=== PATIENT | female | born 1945 | race Caucasian/White ===

== ENCOUNTER 2019-05-05 12:02 | Outpatient (CLI) | payer MEDICARE, SELFPAY ==
--- NOTE | ~2019-05-05 | MMUS_ITS ---
EXAMINATION: MM diagnostic anisha RT w candy, US breast RT limited HISTORY: Six-month follow-up for probably benign right breast mass. TECHNIQUE: Craniocaudal, mediolateral, and mediolateral oblique 3-D tomosynthesis images of the right breast were performed and synthetic 2-D images were generated. CAD analysis was submitted and interp reted. High resolution limited right breast ultrasound was performed. COMPARISON: 10/14/2018, 10/03/2018, 09/14/2018, 07/06/2017, 06/17/2016 BREAST PARENCHYMAL COMPOSITION: There are scattered areas of fibroglandular density. FINDINGS: MAMMOGRAPHIC FINDINGS: There is a 5 mm round, circumscribed, equal density mass in the middle third of the outer breast at t he 9:00 location 6 cm from the nipple. Scattered benign-appearing calcifications are present. No susp icious architectural distortion is identified. ULTRASOUND: There is a 5 mm cyst at the 9:00 location 4 cm from the nipple corresponding to the mammographic find ing in question. At the 3:00 location, there is a tiny shadowing calcification which corresponds to t he area previously imaged for which follow-up is recommended. IMPRESSION: 1. No mammographic or sonographic evidence of malignancy. 2. Recommend routine screening mammography. BI-RADS Category 2: Benign finding(s). Reviewed, dictated and finalized at location A. R ENERGY SYSTEMS ENGINEER IMPRESSION: 1. No mammographic or sonographic evidence of malignancy. 2. Recommend routine screening mammography. BI-RADS Category 2: Benign finding(s).
== END 2019-05-05 12:03 | disposition home or self-care (01) ==
LOC: ANHIMG 12:06
PROVIDERS: PCP Family Medicine; Visit Provider Physician Assistant Medical
DX: R92.8 Other abnormal and inconclusive findings on diagnostic imaging of breast (principal)
CPT/HCPCS: 76642; 77061; 77065; G0279

== ENCOUNTER 2019-05-29 14:07 | Outpatient (CLI) | payer MEDICARE, SELFPAY ==
--- NOTE | ~2019-05-29 | XR_ITS ---
XR chest 2V DATE: 05/29/2019 14:26 INDICATION: Cough, shortness of breath TECHNIQUE: PA and lateral views COMPARISON: 06/24/2017 two-view chest FINDINGS: There is some chronic scarring in the left mid-upper lung. The lungs are mildly hyperinflat ed. No pulmonary infiltrate or consolidation, pleural effusion or pulmonary vascular congestion or pn eumothorax is detected. Borderline heart size. There is thoracic aortic and abdominal aortic calcification. Diffuse osteopenia. Probable callus formation associated with old fracture of the anterior left fourt h rib. IMPRESSION: Chronic left upper lobe scarring No active disease or significant change since 06/24/2017 Reviewed, dictated and finalized at location A.
== END 2019-05-29 14:08 | disposition home or self-care (01) ==
LOC: ANHIMG 14:15
PROVIDERS: PCP Family Medicine; Visit Provider Nurse Practitioner Family
DX: R05 Cough (principal); R06.02 Shortness of breath; R91.8 Other nonspecific abnormal finding of lung field
CPT/HCPCS: 71046

== ENCOUNTER 2019-08-24 10:21 | Outpatient (CLI) | payer MEDICARE, SELFPAY ==
[2019-08-24 10:38] LABS: Hematocrit 40.2 % (37.0-47.0); Hemoglobin 13.2 g/dL (12.0-15.0); Mean Corpuscular HGB Conc 32.8 g/dl (32-36); Mean Corpuscular Hemoglobin 29.9 pg (26-34); Mean Corpuscular Volume 91.2 fl (80-100); Mean Platelet Volume 12.2 fl (7.4-10.4); Platelet Count Result 254 k/mm3 (150-375); Red Blood Count 4.41 M/mm3 (4.2-5.4); Red Cell Distribution Width 13.6 % (11.5-14.5); White Blood Count 8.2 K/mm3 (4.5-10.0)
[2019-08-24 10:52] LABS: Alanine Aminotransferase 21 U/L (4-35); Albumin Level 4.4 g/dL (3.5-5.1); Alkaline Phosphatase 73 U/L (38-126); Aspartate Amino Transferase 32 U/L (14-36); Bilirubin,Total 0.4 mg/dL (0.2-1.3); Blood Urea Nitrogen 10 mg/dL (7-17); Calcium 9.4 mg/dL (8.4-10.2); Carbon Dioxide 34 mmol/L (22-30); Chloride 97 mmol/L (98-107); Cholesterol 155 mg/dL (0-200); Estimated Glomerular Filt Rate > 60; Glucose 93 mg/dL (65-105); HDL Direct 66 mg/dL; Potassium 3.8 mmol/L (3.4-5.0); Sodium 134 mmol/L (137-145); Triglycerides 72 mg/dL (<150)
[2019-08-24 11:03] LABS: LDL Cholesterol Direct 64 mg/dL
[2019-08-24 11:24] LABS: Free T4 Free Thyroxine 1.46 ng/mL (0.78-2.19)
== END 2019-08-24 10:22 | disposition home or self-care (01) ==
LOC: ANHLAB 10:25
PROVIDERS: PCP Family Medicine; Visit Provider Physician Assistant Medical
DX: E03.9 Hypothyroidism, unspecified (principal); I10 Essential (primary) hypertension; E78.5 Hyperlipidemia, unspecified
CPT/HCPCS: 36415; 80053; 80061; 84439; 84443; 85027

== ENCOUNTER 2019-09-19 11:55 | Outpatient (CLI) | payer MEDICARE, SELFPAY ==
[2019-09-19 12:28] LABS: Blood Urea Nitrogen 14 mg/dL (7-17); Calcium 9.6 mg/dL (8.4-10.2); Carbon Dioxide 33 mmol/L (22-30); Chloride 96 mmol/L (98-107); Estimated Glomerular Filt Rate > 60; Glucose 95 mg/dL (65-105); Potassium 4.1 mmol/L (3.4-5.0); Sodium 133 mmol/L (137-145)
== END 2019-09-19 11:56 | disposition home or self-care (01) ==
PROVIDERS: PCP Family Medicine; Visit Provider Physician Assistant Medical
DX: E87.1 Hypo-osmolality and hyponatremia (principal)
CPT/HCPCS: 36415; 80048

== ENCOUNTER 2019-09-22 13:16 | Outpatient (CLI) | payer MEDICARE, SELFPAY ==
[2019-09-22 13:49] LABS: Sodium Urine Random 21 meq/L
== END 2019-09-22 13:17 | disposition home or self-care (01) ==
LOC: ANHLAB 13:19
PROVIDERS: PCP Family Medicine; Visit Provider Physician Assistant Medical
DX: E87.1 Hypo-osmolality and hyponatremia (principal)
CPT/HCPCS: 84300

== ENCOUNTER 2020-01-16 12:41 | Outpatient (CLI) | payer MEDICARE, SELFPAY ==
[2020-01-16 13:19] LABS: Albumin Level 4.2 g/dL (3.5-5.1); Anion Gap 4 mmol/L (8-16); Blood Urea Nitrogen 14 mg/dL (7-17); Calcium 9.6 mg/dL (8.4-10.2); Carbon Dioxide 39 mmol/L (22-30); Chloride 92 mmol/L (98-107); Estimated Glomerular Filt Rate > 60; Glucose 106 mg/dL (65-105); Phosphorus 3.9 mg/dL (2.5-4.5); Potassium 3.8 mmol/L (3.4-5.0); Sodium 135 mmol/L (137-145)
== END 2020-01-16 12:42 | disposition home or self-care (01) ==
LOC: ANHLAB 12:43
PROVIDERS: PCP Family Medicine; Visit Provider Internal Medicine Nephrology
DX: E87.1 Hypo-osmolality and hyponatremia (principal)
CPT/HCPCS: 36415; 80069

== ENCOUNTER 2020-03-26 12:27 | Outpatient (CLI) | payer MEDICARE, SELFPAY ==
[2020-03-26 13:18] LABS: Albumin Level 4.2 g/dL (3.5-5.1); Anion Gap 4 mmol/L (8-16); Blood Urea Nitrogen 14 mg/dL (7-17); Calcium 9.2 mg/dL (8.4-10.2); Carbon Dioxide 33 mmol/L (22-30); Chloride 97 mmol/L (98-107); Estimated Glomerular Filt Rate > 60; Glucose 86 mg/dL (65-105); Phosphorus 4.3 mg/dL (2.5-4.5); Potassium 4.1 mmol/L (3.4-5.0); Sodium 134 mmol/L (137-145)
== END 2020-03-26 12:28 | disposition home or self-care (01) ==
LOC: ANHLAB 12:31
PROVIDERS: PCP Family Medicine; Visit Provider Internal Medicine Nephrology
DX: E87.1 Hypo-osmolality and hyponatremia (principal); I10 Essential (primary) hypertension
CPT/HCPCS: 36415; 80069

== ENCOUNTER 2020-05-16 10:16 | Outpatient (CLI) | payer MEDICARE, SELFPAY | END 2020-05-16 10:17 | disposition home or self-care (01) | LOC: ANHCOVIDVC 10:16 | PROVIDERS: PCP Family Medicine | DX: Z23 Encounter for immunization (principal) | CPT/HCPCS: 0001A; 91300 ==

== ENCOUNTER 2020-05-23 09:02 | Outpatient (CLI) | payer MEDICARE, SELFPAY ==
--- NOTE | 2020-06-12 12:23 | WPDHOMESLEEP ---
Sleep Study - Home Unattended Date of Study: 05/23/20 Ordering Provider: Gio Ann APRN Primary care is Dr. Les Hart Interpreting Provider: Echo Combs MD Home Sleep Study Type: Apnea Link Air Height: 1.52 m Weight: 81.193 kg Body Mass Index: 34.9 Neck Circumference (inches): 16 [place]: 8 Reason for Sleep Study suspected obstructive sleep apnea, nonrestorative sleep, daytime sleepiness Sleep History Su Bustillos is a 74 year old female with non-restorative sleep. She wakes up a few times during the night. When she wakes in the morning she is still tired. She has increased sleepiness in the afternoon. Her does not notice snoring but she mumbles in her sleep. She is not short of breath until she stands up and walks in the morning. She frequently awakens at night with heartburn, belching or coughing. She rarely awakens from sleep feeling short of breath. She does not snore loudly enough that others complain about it and only rarely snores. She frequently has trouble sleep with a cold. She does not wake up gasping for breath at night and does not have breathing problems at night observed by others. She does not sweat excessively at night or notice her heart pounding or beating irregularly during the night. She rarely falls asleep during the day, never involuntarily and never while driving. She does not have loss of muscle tone with strong emotion. She does not have daytime difficulties due to excessive sleepiness, she is a homemaker. She does not feel paralyzed on waking or falling asleep and does not have vivid dreamlike scenes upon awakening or falling asleep. She does not feel afraid to go to sleep. She rarely has nightmares. She occasionally remembers her dreams, and occasionally has racing thoughts. She occasionally has feelings of sadness, depression, and anxiety. She rarely has muscular tension. She frequently notices parts of her body jerking. She rarely kicks at night. She occasionally has crawling and aching feelings in her legs and occasionally has leg pain at night. She does not have morning jaw pain and does not grind her teeth during sleep. She frequently is bothered by pain during the day, occasionally is awakened by pain at night. She frequently wakes up feeling stiff in the morning with sore achy muscles. She does not wake up with pain in the neck and spine. She has fatigue, headaches, bowel disturbances and depression. Normal bedtime is between 11:00 p.m. and 12 midnight sometimes taking a while to fall asleep. She typically wakes up 3-4 times at night to go to the bathroom. She does not stay awake for long. She wakes the morning between 7:30 and 8:00 a.m.. Her weekend schedule is the same. She does not take naps. A short nap is not refreshing. She is drowsy in the morning for 1 hour or longer. She feels better in the morning compared to other times of day. Habits: Former smoker. Caffeine 2 cups in the morning and 1 cup around 2:00 p.m.. Occasional alcohol. [facility] Past Medical History Medical History (Updated 06/12/20 @ 12:44 by Echo Combs MD) Chronic obstructive lung disease Exercise hypoxemia Malignant neoplasm of upper lobe of left lung Rhinitis Tobacco dependence syndrome Family History Family History Mother Hypertension Family history of congestive heart failure, Onset Age: 93 Grandparent Family history of malignant neoplasm of breast Father Family history of coronary artery disease Family history of cardiovascular disease, Onset Age: 55 Sibling Family history of coronary artery disease Family history of cardiovascular disease Social History Social History Smoking packs per day: 1 Smoking cigarettes per day: 20.0 Years smoked: 50 Smoking pack-years: 50.00 Smoking status: Former smoker Tobacco type: cigare
[2020-06-12 12:50] VITALS: BMI 34.9
== END 2020-05-23 09:03 | disposition home or self-care (01) ==
LOC: ANHCSM 09:03
PROVIDERS: PCP Family Medicine; Visit Provider Nurse Practitioner Family
DX: G47.33 Obstructive sleep apnea (adult) (pediatric) (principal)
CPT/HCPCS: 95806

== ENCOUNTER 2020-05-29 13:20 | Outpatient (CLI) | payer MEDICARE, SELFPAY ==
[2020-05-29 13:51] LABS: Albumin Level 4.3 g/dL (3.5-5.1); Anion Gap 2 mmol/L (8-16); Blood Urea Nitrogen 16 mg/dL (7-17); Carbon Dioxide 38 mmol/L (22-30); Chloride 95 mmol/L (98-107); Estimated Glomerular Filt Rate 40; Glucose 91 mg/dL (65-105); Phosphorus 3.9 mg/dL (2.5-4.5); Potassium 3.7 mmol/L (3.4-5.0); Sodium 135 mmol/L (137-145)
== END 2020-05-29 13:21 | disposition home or self-care (01) ==
PROVIDERS: PCP Family Medicine; Visit Provider Internal Medicine Nephrology
DX: E87.1 Hypo-osmolality and hyponatremia (principal)
CPT/HCPCS: 36415; 80069

== ENCOUNTER 2020-06-06 10:14 | Outpatient (CLI) | payer MEDICARE, SELFPAY | END 2020-06-06 10:15 | disposition home or self-care (01) | LOC: ANHCOVIDVC 10:14 | PROVIDERS: PCP Family Medicine | DX: Z23 Encounter for immunization (principal) | CPT/HCPCS: 0002A; 91300 ==

== ENCOUNTER 2020-06-18 12:32 | Outpatient (CLI) | payer MEDICARE, SELFPAY ==
[2020-06-18 13:53] LABS: Basophils Absolute Auto 0.1 K/mm3 (0.0-0.1); Basophils Percent Auto 0.7 % (0.2-1.2); Eosinophils Absolute Auto 0.3 K/mm3 (0-0.3); Eosinophils Percent Auto 3.6 % (0-4.4); Hematocrit 40.9 % (37.0-47.0); Hemoglobin 13.3 g/dL (12.0-15.0); Immature Granulocyte Absolute 0.04 K/mm3 (0.00-0.031); Immature Granulocyte Percent A 0.5 % (0-0.5); Lymphocytes Absolute Auto 1.53 K/mm3 (0.9-3.2); Lymphocytes Percent Auto 18.4 % (18.3-44.2); Mean Corpuscular HGB Conc 32.5 g/dl (32-36); Mean Corpuscular Hemoglobin 29.6 pg (26-34); Mean Corpuscular Volume 91.1 fl (80-100); Mean Platelet Volume 12.8 fl (7.4-10.4); Monocytes Absolute Auto 0.9 K/mm3 (0.1-0.6); Monocytes Percent Auto 11.2 % (2.6-8.5); Neutrophils Absolute Auto 5.5 K/mm3 (1.3-6.7); Neutrophils Percent Auto 65.6 % (45.5-73.1); Platelet Count Result 224 k/mm3 (150-375); Red Blood Count 4.49 M/mm3 (4.2-5.4); Red Cell Distribution Width 12.7 % (11.5-14.5); White Blood Count 8.3 K/mm3 (4.5-10.0)
[2020-06-18 14:24] LABS: Free T4 Free Thyroxine 1.59 ng/mL (0.78-2.19)
== END 2020-06-18 12:33 | disposition home or self-care (01) ==
PROVIDERS: PCP Family Medicine; Visit Provider Physician Assistant Medical
DX: E07.9 Disorder of thyroid, unspecified (principal); I10 Essential (primary) hypertension
CPT/HCPCS: 36415; 84439; 84443; 85025

== ENCOUNTER → 2020-07-09 00:39 | Outpatient (CLI) | payer MEDICARE, SELFPAY ==
[2020-07-09 20:47] LABS: SARS-CoV-2 RNA PCR Negative
== END ==
PROVIDERS: PCP Family Medicine; Visit Provider Internal Medicine Critical Care Medicine
DX: Z01.812 Encounter for preprocedural laboratory examination (principal); Z20.822 Contact with and (suspected) exposure to COVID-19
CPT/HCPCS: C9803; U0003; U0005

== ENCOUNTER 2020-07-11 07:57 | Outpatient (CLI) | payer MEDICARE, SELFPAY ==
--- NOTE | 2020-07-24 16:53 | WPDSLEEPSTUD ---
Sleep Study Ordering Provider: Gio Ann APRN Interpreting Physician: Echo Combs MD Sleep Study Type: CPAP Titration Height: 1.52 m Weight: 81.193 kg Body Mass Index: 34.9 Neck Circumference (inches): 16 [place]: 9 Reason for Sleep Study Home sleep test May 23, 2020 showing at least mild obstructive sleep apnea, AHI at 9, desaturation to 75% and 41 minutes spent below 88% saturation. She presents for CPAP titration. 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 Her HST 05/23/2020 was (+) with mild GEOVANI, AHI 9, with hypoxemia, lowest saturation 75%. She has non-restorative sleep. She wakes up a few times during the night. When she wakes in the morning she is still tired. She has increased sleepiness in the afternoon. Her does not notice snoring but she mumbles in her sleep. She is not short of breath until she stands up and walks in the morning. She frequently awakens at night with heartburn, belching or coughing. She rarely awakens from sleep feeling short of breath. She does not snore loudly enough that others complain about it and only rarely snores. She frequently has trouble sleep with a cold. She does not wake up gasping for breath at night and does not have breathing problems at night observed by others. She does not sweat excessively at night or notice her heart pounding or beating irregularly during the night. She rarely falls asleep during the day, never involuntarily and never while driving. She does not have loss of muscle tone with strong emotion. She does not have daytime difficulties due to excessive sleepiness, she is a homemaker. She does not feel paralyzed on waking or falling asleep and does not have vivid dreamlike scenes upon awakening or falling asleep. She does not feel afraid to go to sleep. She rarely has nightmares. She occasionally remembers her dreams, and occasionally has racing thoughts. She occasionally has feelings of sadness, depression, and anxiety. She rarely has muscular tension. She frequently notices parts of her body jerking. She rarely kicks at night. She occasionally has crawling and aching feelings in her legs and occasionally has leg pain at night. She does not have morning jaw pain and does not grind her teeth during sleep. She frequently is bothered by pain during the day, occasionally is awakened by pain at night. She frequently wakes up feeling stiff in the morning with sore achy muscles. She does not wake up with pain in the neck and spine. She has fatigue, headaches, bowel disturbances and depression. Normal bedtime is between 11:00 p.m. and 12 midnight, sometimes taking a while to fall asleep. She typically wakes up 3-4 times at night to go to the bathroom. She does not stay awake for long. She wakes the morning between 7:30 and 8:00 a.m.. Her weekend schedule is the same. She does not take naps. A short nap is not refreshing. She is drowsy in the morning for 1 hour or longer. She feels better in the morning compared to other times of day. Habits: Former smoker. Caffeine 2 cups in the morning and 1 cup around 2:00 p.m.. Occasional alcohol. [facility] Past Medical History Medical History (Updated 07/24/20 @ 18:23 by Echo Combs MD) Adult BMI 34.0-34.9 kg/sq m Chronic obstructive lung disease Exercise hypoxemia Malignant neoplasm of upper lobe of left lung Obstructive sleep apnea (~05/2020) Rhinitis Tobacco dependence syndrome Family History Family History Mother Hypertension Family history of congestive heart failure, Onset Age: 93 Grandparent Family history of malignant neoplasm of breast Father Family history of coronary artery disease Family history of cardiovascular disease, Onset Age: 55 Sibling Family history of coronary artery disease Family history of cardiovascular
[2020-07-24 18:10] VITALS: BMI 34.9
== END 2020-07-11 07:58 | disposition home or self-care (01) ==
LOC: ANHCSM 07:58
PROVIDERS: PCP Family Medicine; Visit Provider Nurse Practitioner Family
DX: G47.33 Obstructive sleep apnea (adult) (pediatric) (principal)
CPT/HCPCS: 95811

== ENCOUNTER 2020-07-25 14:21 | Outpatient (CLI) | payer MEDICARE, SELFPAY ==
--- NOTE | ~2020-07-25 | MM_ITS ---
EXAMINATION: MM screening [facility] BI w candy HISTORY: Screening mammogram TECHNIQUE: Craniocaudal and mediolateral oblique 3-D tomosynthesis images were obtained and synthetic 2-D images were generated. CAD analysis was submitted and interpreted. COMPARISON: 05/05/2019, 10/03/2018, 09/14/2018, 07/06/2017 BREAST PARENCHYMAL COMPOSITION: There are scattered areas of fibroglandular density. FINDINGS: A stable mass of the outer right breast at the 9:00 location has been previously characteri zed as a cyst. There is no evidence of suspicious mass, calcification, or architectural distortion to suggest malignancy in either breast. There has been no suspicious interval change. IMPRESSION: 1. No mammographic evidence of malignancy. 2. Recommend routine screening mammography in one year. BI-RADS Category 2: Benign finding(s). Reviewed, dictated and finalized at location A.
== END 2020-07-25 14:22 | disposition home or self-care (01) ==
LOC: ANHIMG 14:28
PROVIDERS: PCP Family Medicine; Visit Provider Family Medicine
DX: Z12.31 Encounter for screening mammogram for malignant neoplasm of breast (principal)
CPT/HCPCS: 77063; 77067

== ENCOUNTER 2020-10-17 12:31 | Outpatient (CLI) | payer MEDICARE, SELFPAY ==
[2020-10-17] VITALS (7 sets, daily range): PULSE 64–93; O2SAT 85–95
--- NOTE | 2020-10-17 13:44 | HOMEO2EVAL ---
Evaluation was performed at [facility] Home Oxygen Evaluation RC: Home Oxygen (O2) Evaluation Start: 10/17/20 13:39 Freq: Status: Active Protocol: RPE Activity Type Activity Date Activity User E-Sign Co-Sign Detail Recorded Client Recorded Date Recorded By Document 10/17/20 13:00 ROBBIE [email or web address] 10/17/20 13:44 ROBBIE Document 10/17/20 13:01 ROBBIE [email or web address] 10/17/20 13:44 ROBBIE Document 10/17/20 13:02 ROBBIE [email or web address] 10/17/20 13:44 ROBBIE Document 10/17/20 13:03 ROBBIE [email or web address] 10/17/20 13:44 ROBBIE Document 10/17/20 13:04 ROBBIE [email or web address] 10/17/20 13:44 ROBBIE Document 10/17/20 13:05 ROBBIE [email or web address] 10/17/20 13:44 ROBBIE Document 10/17/20 13:15 ROBBIE [email or web address] 10/17/20 13:44 ROBBIE 10/17/20 10/17/20 10/17/20 13:00 13:01 13:02 Home O2 Evaluation Test Phase Resting Exercise Exercise Oxygen Delivery Room Air Room Air Nasal Cannula Oxygen Flow Rate (L/min) 1 Pulse Oximetry (90-100 %) 94 85 L 86 L Pulse Rate (60-100 beats/min) 64 Ambulation Distance (feet) Home Oxygen Evaluation Comments Treatment Charges O2 Evaluation - Outpatient 10/17/20 10/17/20 10/17/20 13:03 13:04 13:05 Home O2 Evaluation Test Phase Exercise Exercise Exercise Oxygen Delivery Nasal Cannula Nasal Cannula Nasal Cannula Oxygen Flow Rate (L/min) 2 3 4 Pulse Oximetry (90-100 %) 86 L 87 L 90 Pulse Rate (60-100 beats/min) 93 Ambulation Distance (feet) 600 Home Oxygen Evaluation Comments PT USED PERSONAL PULSE DOSE PORTABLE O2 CONCENTRATOR AT 4 Treatment Charges 10/17/20 13:15 Home O2 Evaluation Test Phase Resting Oxygen Delivery Room Air Oxygen Flow Rate (L/min) Pulse Oximetry (90-100 %) 95 Pulse Rate (60-100 beats/min) 90 Ambulation Distance (feet) Home Oxygen Evaluation Comments Treatment Charges
== END 2020-10-17 12:32 | disposition home or self-care (01) ==
LOC: ANHPFT 12:33
PROVIDERS: PCP Family Medicine; Visit Provider Internal Medicine Critical Care Medicine
DX: J44.9 Chronic obstructive pulmonary disease, unspecified (principal)
CPT/HCPCS: 94618

== ENCOUNTER 2020-11-26 15:00 | Emergency (ER) | payer MEDICARE, SELFPAY ==
[2020-11-26 15:11] VITALS: BP 144/92; PULSE 77; RESP 20; TEMP 36.8; O2SAT 96
--- NOTE | 2020-11-26 15:24 | ED.SKABFB ---
HPI - Skin/Abscess/Foreign Bdy General Chief complaint: Extremity Problem,Nontraumatic Stated complaint: Swollen Rt arm Time Seen by Provider: 11/26/20 15:10 Source: patient and RN notes reviewed Mode of arrival: ambulatory Limitations: no limitations History of Present Illness HPI narrative: Patient presents today complaining of the right elbow and upper arm that is red, swollen, and hot for the last 4 days. States her elbow was swollen significantly, but the swelling has improved in this area. Denies pain or itching. Denies numbness or tingling in the arm or hand. Denies injury or trauma. Denies decreased range of motion of the elbow. She has not been trying any jhjl-uet-ruxkheo interventions prior to arrival. Denies history of MRSA, staph, boils or abscesses. MD complaint: discoloration and other (Arm swelling) Related Data Home Medications Medication Instructions Recorded Confirmed aspirin 81 mg tablet,delayed 81 mg PO DAILY 03/17/19 11/26/20 release cholecalciferol (vitamin D3) 50 2,000 unit PO DAILY 03/17/19 11/26/20 mcg (2,000 unit) capsule arformoterol [Brovana] 2 ml INHALATION BID 10/18/20 11/26/20 calcium 1,200 mg PO DAILY 10/18/20 11/26/20 okfdtrkl-hpd-dext-FA-lutein 1 tablet PO DAILY 10/18/20 11/26/20 [Centrum Silver Women] revefenacin [Yupelri] 175 mcg INHALATION DAILY 10/18/20 11/26/20 bupropion HCl [Wellbutrin XL] 150 mg PO QAM 11/26/20 11/26/20 vit C,J-Ou-yqjpm-lutein-zeaxan 1 cap PO DAILY 11/26/20 11/26/20 [Healthy Eyes Lutein-Zeaxanthin] Allergies Allergy/AdvReac Type Severity Reaction Status Date / Time No Known Allergies Allergy Verified 11/26/20 15:19 Review of Systems Review of Systems: CONSTITUTIONAL: Denies body aches, fever, chills, or sweats. EYES: Denies visual changes, redness, or discharge. ENT: Denies rhinorrhea, congestion, sore throat, or otalgia. CARDIOVASCULAR: Denies chest pain, palpitations, or edema. RESPIRATORY: Denies cough or dyspnea. GASTROINTESTINAL: Denies abdominal pain, nausea, vomiting, or diarrhea. GENITOURINARY: Denies dysuria or hematuria. SKIN: Denies rash, itching, or wounds. MUSCULOSKELETAL: Denies back pain. + Redness, swelling to right upper arm. NEUROLOGIC: Denies headache, numbness, tingling, or weakness. PSYCH: Denies depression or anxiety. PMFSH Past Medical History Medical History Adult BMI 34.0-34.9 kg/sq m Chronic obstructive lung disease Exercise hypoxemia Malignant neoplasm of upper lobe of left lung Obstructive sleep apnea (~05/2020) Rhinitis Tobacco dependence syndrome Family History Family History Mother Family history of congestive heart failure, Onset Age: 93 Hypertension Dementia Grandparent Family history of malignant neoplasm of breast Father Family history of cardiovascular disease, Onset Age: 55 Family history of coronary artery disease Sibling Family history of cardiovascular disease Family history of coronary artery disease Social History Social History Smoking packs per day: 1.5 Smoking cigarettes per day: 30.0 Years smoked: 50 Smoking pack-years: 75.00 Smoking status: Former smoker Tobacco type: cigarettes Second hand tobacco smoke exposure: No Smoking end date: 10/13/13 Alcohol intake: current Comments At time of signature, I have reviewed and agree with nursing past medical, surgical, social and family history unless otherwise noted. Please see nursing chart for further information. There is no relevant family history pertinent to the presenting complaint Exam Narrative: GENERAL: Well-appearing, well-nourished, and in no acute distress. HEAD: Normocephalic, atraumatic. EYES: EOMI. No redness or drainage. Conjunctivae normal. ENT: Mucous membranes pink and moist. NECK: No
== END 2020-11-26 15:35 | disposition home or self-care (01) ==
PROVIDERS: Emergency Provider Nurse Practitioner; PCP Family Medicine
DX: M70.21 Olecranon bursitis, right elbow (principal); L03.113 Cellulitis of right upper limb; Z79.82 Long term (current) use of aspirin; Z87.891 Personal history of nicotine dependence
CPT/HCPCS: 99213; G0463

== ENCOUNTER 2020-12-24 13:30 | Outpatient (RCR) | payer MEDICARE, SELFPAY ==
[2020-10-18 11:48] VITALS: PULSE 61
--- NOTE | 2020-11-29 13:45 | PCCPR ---
Addendum entered by Malini Chen RN 12/03/20 10:35: Esperanza had a visit with her PCP and confirmed she had cellulitis is currently on antibiotics and is able to return to rehab. Original Note: Sent home due to cellulitis to her rt elbow Esperanza [facility] redness and swelling to her elbow. She is being treated for cellulitis with oral antibiotics however activity instructions were not given. She is supposed see per PCP on Wednesday. Encouraged she find out if she has any activity restrictions.
--- NOTE | 2020-12-11 11:49 | PCCPR ---
Esperanza will be absent Wednesday, she had a COVID exposure and would like to be tested before she returns.
--- NOTE | 2020-12-31 13:58 | PCCPR ---
Addendum entered by Malini Chen RN 02/12/21 09:29: LM on her home an cell requesting she call us back with her plan to return or dc. Original Note: Esperanza called this morning and asked to be placed on hold. Her had recent knee replacement and is requiring much care. She asked that we check back with her in one month.
== END 2020-12-24 23:59 | disposition home or self-care (01) ==
LOC: ANHCPREHAB 13:30
PROVIDERS: PCP Family Medicine; Visit Provider Internal Medicine Critical Care Medicine
DX: J98.4 Other disorders of lung (principal)
CPT/HCPCS: 97150; G0424

== ENCOUNTER 2022-01-21 10:50 | Outpatient (CLI) | payer MEDICARE, SELFPAY ==
[2022-01-21 11:17] LABS: Basophils Absolute Auto 0.1 K/mm3 (0.0-0.1); Basophils Percent Auto 0.6 % (0.2-1.2); Eosinophils Absolute Auto 0.2 K/mm3 (0-0.3); Eosinophils Percent Auto 2.8 % (0-4.4); Hematocrit 37.9 % (37.0-47.0); Hemoglobin 12.5 g/dL (12.0-15.0); Immature Granulocyte Absolute 0.02 K/mm3 (0.00-0.031); Immature Granulocyte Percent A 0.2 % (0-0.5); Lymphocytes Absolute Auto 1.36 K/mm3 (0.9-3.2); Lymphocytes Percent Auto 16.3 % (18.3-44.2); Mean Corpuscular Hemoglobin 30.5 pg (26-34); Mean Corpuscular Volume 92.4 fl (80-100); Mean Platelet Volume 12.1 fl (7.4-10.4); Monocytes Percent Auto 11.7 % (2.6-8.5); Neutrophils Absolute Auto 5.7 K/mm3 (1.3-6.7); Neutrophils Percent Auto 68.4 % (45.5-73.1); Platelet Count Result 232 k/mm3 (150-375); Red Cell Distribution Width 12.6 % (11.5-14.5); White Blood Count 8.3 K/mm3 (4.5-10.0)
[2022-01-21 11:31] LABS: Alanine Aminotransferase 24 U/L (6-35); Albumin Level 4.5 g/dL (3.5-5.1); Alkaline Phosphatase 75 U/L (38-126); Anion Gap 9 mmol/L (8-16); Aspartate Amino Transferase 31 U/L (14-36); Bilirubin,Total 0.3 mg/dL (0.2-1.3); Blood Urea Nitrogen 15 mg/dL (7-17); Calcium 9.6 mg/dL (8.4-10.2); Carbon Dioxide 35 mmol/L (22-30); Chloride 92 mmol/L (98-107); Cholesterol 213 mg/dL (0-200); Estimated Glomerular Filt Rate > 60; Glucose 90 mg/dL (65-110); HDL Direct 65 mg/dL; Potassium 4.3 mmol/L (3.4-5.0); Sodium 136 mmol/L (137-145); Triglycerides 84 mg/dL (<150)
[2022-01-21 11:42] LABS: LDL Cholesterol Direct 96 mg/dL
== END 2022-01-21 10:51 | disposition home or self-care (01) ==
LOC: ANHLAB 10:52
PROVIDERS: PCP Family Medicine; Visit Provider Physician Assistant Medical
DX: E78.5 Hyperlipidemia, unspecified (principal); I10 Essential (primary) hypertension
CPT/HCPCS: 36415; 80053; 80061; 84443; 85025

== ENCOUNTER 2022-05-05 13:53 | Outpatient (CLI) | payer MEDICARE, SELFPAY ==
--- NOTE | ~2022-05-05 | MM_ITS ---
EXAMINATION: MM screening anisha BI w candy HISTORY: Screening mammogram TECHNIQUE: Craniocaudal and mediolateral oblique 3-D tomosynthesis images were obtained and synthetic 2-D images were generated. CAD analysis was submitted and interpreted. COMPARISON: 07/25/2020 bilateral screening mammogram BREAST PARENCHYMAL COMPOSITION: There are scattered areas of fibroglandular density. FINDINGS: Scattered bilateral benign calcifications. There is no evidence of suspicious mass, calcifi cation, or architectural distortion to suggest malignancy in either breast. There has been no suspici ous interval change. IMPRESSION: 1. No mammographic evidence of malignancy. 2. Recommend routine screening mammography in one year. BI-RADS Category 2: Benign finding(s). Reviewed, dictated and finalized at location A. STERED DIETICIAN
== END 2022-05-05 13:54 | disposition home or self-care (01) ==
PROVIDERS: PCP Family Medicine; Visit Provider Physician Assistant Medical
DX: Z12.31 Encounter for screening mammogram for malignant neoplasm of breast (principal)
CPT/HCPCS: 77063; 77067

== ENCOUNTER 2022-09-04 13:56 | Outpatient (CLI) | payer MEDICARE, SELFPAY ==
--- NOTE | ~2022-09-04 | US_ITS ---
EXAMINATION: US art doppler w press LE BI DATE: 09/04/2022 14:55 INDICATION: Peripheral vascular disease presenting with bilateral lower limb pain and claudication. TECHNIQUE: Segmental pressures and plethysmographic and Doppler waveforms of the brachial and lower e xtremity arteries were obtained. COMPARISON: None. FINDINGS: Right and left brachial artery pressures of 156 mm Hg and 148 mm Hg, respectively, are concordant (no rmal difference <= 30 mmHg). The right and left high-thigh pressure indices were unable to be obtaine d due to inability to occlude the vessels at either thigh. The right ankle-brachial index (CHIRAG) is 1.02 (normal >= 0.9-1). The right great toe-brachial index (T BI) is 0.46 (normal >= 0.6-0.8). The right lower extremity segmental pressure gradients are normal be tween the right dorsalis pedis and posterior tibial arteries with more proximal pressures unable be o btained due to inability to occlude the vessels (normal gradients <= 20-30 mmHg between adjacent leve ls on the same leg or the same levels on the two legs). Arterial waveforms are biphasic with brisk sy stolic upstrokes throughout the arteries of the right lower limb. The left CHIRAG is 0.71. The left TBI is 0.37. The left lower extremity segmental pressure gradients are increased with significantly elevated pressures in the left posterior tibial and dorsalis pedis alfred matthew relative to the contralateral right dorsalis pedis and posterior tibial arteries. Arterial wavef orms are biphasic with brisk systolic upstrokes throughout the arteries of the left lower limb. IMPRESSION: 1. Arterial occlusive disease to bilateral lower limbs with borderline right CHIRAG and mildly decreased right TBI and moderately decreased left CHIRAG and TBI. Reviewed, dictated and finalized at location A. IMPRESSION: 1. Arterial occlusive disease to bilateral lower limbs with borderline right AB I and mildly decreased right TBI and moderately decreased left CHIRAG and TBI.
== END 2022-09-04 13:57 | disposition home or self-care (01) ==
PROVIDERS: PCP Family Medicine; Visit Provider Nurse Practitioner Family
DX: I73.9 Peripheral vascular disease, unspecified (principal)
CPT/HCPCS: 93923

== ENCOUNTER 2023-01-30 06:47 | Inpatient (IN) | payer MEDICARE, SELFPAY ==
[2023-01-30] VITALS (20 sets, daily range): BP systolic 121–168; BP diastolic 63–89; PULSE 86–100; RESP 16–36; TEMP 36–37.4; O2SAT 97–100; BMI 32.3
--- NOTE | ~2023-01-30 | XR_ITS ---
EXAMINATION: XR chest 2V DATE: 01/30/2023 07:39 INDICATION: Shortness of breath. TECHNIQUE: Frontal and lateral views of the chest were obtained. COMPARISON: Chest 2 views 05/29/2019, chest CT 07/27/16 FINDINGS: The lungs are hyperexpanded, consistent with emphysema. A calcified left lung nodule and ca lcified left hilar lymph nodes are consistent with old granulomatous disease. There is mild scarring in left upper lobe. No pleural effusion or pneumothorax. The heart size is normal. There is an old he aled fracture of left fourth rib. IMPRESSION: 1. Emphysema. 2. Stable mild scarring at left lung upper lobe. Reviewed, dictated and finalized at location A. [facility]
--- NOTE | 2023-01-30 07:04 | ECG_ITS ---
Measurements Intervals [place] Rate: 92 P: 66 LA: 152 QRS: 37 QRSD: 94 T: 78 QT: 358 QTc: 445 Interpretive Statements SINUS RHYTHM DELAYED PRECORDIAL R/S TRANSITION BORDERLINE ST-T WAVE ABNORMALITY- LAT/HIGH LAT LEADS BASELINE ARTIFACT- I, II, III, AVR, AVL, AVF BORDERLINE ECG NO PREVIOUS ECG AVAILABLE FOR COMPARISON Electronically Signed On 01-30-2023 7:48:08 FINAL CLEANER by Randy Baker D.O.
[2023-01-30 07:20] LABS: Hematocrit 36.4 % (37.0-47.0); Hemoglobin 11.5 g/dL (12.0-15.0); Mean Corpuscular HGB Conc 31.6 g/dl (32-36); Mean Corpuscular Hemoglobin 29.6 pg (26-34); Mean Corpuscular Volume 93.8 fl (80-100); Mean Platelet Volume 11.7 fl (7.4-10.4); Platelet Count Result 263 k/mm3 (150-375); Red Blood Count 3.88 M/mm3 (4.2-5.4); Red Cell Distribution Width 12.5 % (11.5-14.5); White Blood Count 22.4 K/mm3 (4.5-10.0)
[2023-01-30 07:30] LABS: Alanine Aminotransferase 25 U/L (6-35); Albumin Level 4.3 g/dL (3.5-5.1); Alkaline Phosphatase 100 U/L (38-126); Anion Gap 9 mmol/L (8-16); Aspartate Amino Transferase 35 U/L (14-36); Bilirubin,Total 0.9 mg/dL (0.2-1.3); Blood Urea Nitrogen 18 mg/dL (7-17); Calcium 9.8 mg/dL (8.4-10.2); Carbon Dioxide 35 mmol/L (22-30); Chloride 87 mmol/L (98-107); Estimated CRCL calculation 41 ml/min; Estimated Glomerular Filt Rate > 60; Glucose 113 mg/dL (65-110); Sodium 131 mmol/L (137-145)
[2023-01-30 07:57] LABS: Band Neutrophils Percent 22 % (0-6); Lymphocytes Absolute Manual 0.67 K/mm3 (1.1-4.5); Metamyelocytes Percent 1 %; Monocytes Absolute Manual 1.34 K/mm3 (0.1-0.90); Monocytes Percent Manual 6 % (3-9); Neutrophils Absolute Manual 20.16 K/mm3 (1.7-7.2); Neutrophils Percent Manual 68 % (46-73); Platelet Estimate Adequate (Adequate); Total Cells Counted 100
[2023-01-30 07:58] LABS: Hypochromasia 1+ (NORMAL); Schistocytes None Seen (NORMAL)
--- NOTE | 2023-01-30 07:58 | ED.GENADULT ---
HPI - General Adult General Chief complaint: Shortness of Breath/Dyspnea Stated complaint: sob Time Seen by Provider: 01/30/23 06:59 History of Present Illness HPI narrative: Patient is a 77-year-old female who presents to the ER with sudden onset shortness of breath. She awoke from sleep acutely dyspneic. She wears 4 L of oxygen at baseline. She reports her O2 sat was only 88% when she woke up. She is satting 100% on 4 L right now. No chest pain or chest pressure. Denies any fevers or chills or sweats. She is without nausea or vomiting. No alleviating factors. No history of heart failure. Patient has been having discomfort with urination. Related Data Home Medications Medication Instructions Recorded Confirmed aspirin 81 mg tablet,delayed 81 mg PO DAILY 03/17/19 01/30/23 release cholecalciferol (vitamin D3) 50 2,000 unit PO DAILY 03/17/19 01/30/23 mcg (2,000 unit) capsule tktrsyir-fhhm-mtaq 8 mg-folic 400 1 tablet PO DAILY 10/18/20 01/30/23 mcg-K 50 mcg-lutein 300 mcg tablet ([facility]) vit C,M-Ua-iixxmf-lutein-zeaxan 60 1 cap PO DAILY 11/26/20 01/30/23 mg-13.5 mg-15 mg-2 mg-6 mg capsule albuterol sulfate 2.5 mg/3 mL 2.5 mg inhalation BID 04/09/22 01/30/23 (0.083 %) solution for nebulization arformoterol 15 mcg/2 mL solution 15 mcg inhalation Q12H 08/12/22 01/30/23 for nebulization amlodipine 5 mg tablet 5 mg PO DAILY 01/30/23 01/30/23 atorvastatin 20 mg tablet 20 mg PO HS 01/30/23 01/30/23 benazepril 10 mg tablet 10 mg PO DAILY 01/30/23 01/30/23 budesonide 0.5 mg/2 mL suspension 0.5 mg inhalation Q12H 01/30/23 01/30/23 for nebulization bupropion HCl 300 mg 24 hr tablet, 300 mg PO DAILY 01/30/23 01/30/23 extended release calcium carbonate 500 mg calcium 500 mg PO DAILY 01/30/23 01/30/23 (1,250 mg) tablet citalopram 20 mg tablet 40 mg PO DAILY 01/30/23 01/30/23 metoprolol succinate 100 mg 100 mg PO DAILY 01/30/23 01/30/23 tablet,extended release 24 hr revefenacin 175 mcg/3 mL solution 175 mcg inhalation DAILY 01/30/23 01/30/23 for nebulization (Yupelri) Allergies Allergy/AdvReac Type Severity Reaction Status Date / Time No Known Allergies Allergy Verified 01/30/23 13:09 Review of Systems Review of Systems: All systems reviewed & are unremarkable except as noted in HPI and below Constitutional: Constitutional: Denies chills, Denies fatigue and Denies fever(s) ENT: Denies nasal congestion and Denies sore throat Cardiovascular: Cardiovascular: Denies chest pain, Denies rapid heart rate and Denies radiating jaw, neck or arm pain Respiratory: Respiratory: Denies chest congestion, Denies cough, Reports dyspnea and Denies wheezing Gastrointestinal: Gastrointestinal: Denies abdominal pain, Denies nausea and Denies vomiting Genitourinary: Genitourinary: Denies nocturia, Denies dysuria and Denies flank pain Comments: Vaginal discomfort with urination. Neurologic: Reports system reviewed and no additional complaints, except as documented PMF Past Medical History Medical History (Updated 01/30/23 @ 17:59 by Krunal Akbar MD) Adult BMI 31.0-31.9 kg/sq m Adult BMI 34.0-34.9 kg/sq m Chronic obstructive lung disease Depression with anxiety Essential hypertension Exercise hypoxemia Hyperlipidemia Malignant neoplasm of upper lobe of left lung Obstructive sleep apnea (~05/2020) Mild, deferred treatment Rhinitis Tobacco dependence syndrome Surgical History Surgical History H/O section Family History Family History Mother Family history of congestive heart failure, Onset Age: 93 Hypertension Dementia Grandparent Family history of malignant neoplasm of breast Father Family history of cardiovascular disease, Onset Age: 55 Family history of coronary artery disease Sibling Family history of cardiovascular d
[2023-01-30 08:00] LABS: Atypical Lymphocytes Present
[2023-01-30 08:49] LABS: Influenza A QL RT-PCR Negative (Negative); Influenza B QL RT-PCR Negative (Negative); SARS-CoV-2 RNA PCR Negative (Negative)
[2023-01-30 10:11] LABS: Appearance Urine Cloudy (Clear); Bacteria Urine 4+ /hpf; Bilirubin Urine Negative (Negative); Blood Urine 2+ (Negative); Color Urine Yellow (Yellow); Glucose Urine UA Trace mg/dL (Negative); Ketones Urine Trace mg/dL (Negative); Leukocyte Esterase Ur 3+ LEU/UL (Negative); Nitrate Urine Positive (Negative); Non Pathogenic Casts 0-2; Protein Urine 2+ mg/dL (Negative); RBC Urine 21-50 /hpf (0-2); Specific Grav Ur 1.013 (1.001-1.035); Squamous Epithelial Cell Urine None seen /hpf (Few); Urobilinogen Urine 0.2 mg/dL (<2.0); WBC Urine >100 /hpf; pH Urine 7.5 (5.0-9.0)
[2023-01-30 10:21] LABS: Add Urine Microscopic? YES
--- NOTE | 2023-01-30 12:35 | PC.NURSE ---
This patient, Su Bustillos, was admitted to [facility] Surg Room 330-01. Patient/family oriented to hospital policies and general routines including ID bracelet, bed and alarms, visiting hours, pain management, procedures, bathroom and other care routines, personal items, smoking policy, room service/diet, and visiting hours. Information on how to activate the Rapid Response Team has been discussed. Patient/Family are encouraged to report perceived risks to care and to ask questions if they do not understand what they are told or what they should do.
--- NOTE | 2023-01-30 12:50 | PM.IMHP ---
H&P: HPI History of Present Illness Date/Time: 01/30/23 12:50 Chief Complaint: SOB, dyspnea Narrative: This is a 77 year old female with a PMH of COPD chronically on 4 L NC of oxygen, GEOVANI, HTN, depression/anxiety, HLD, and hypothyroidism. She states that last night around 0200 she was having shortness of breath and needed to increase her home oxygen from 4 L to 5 L NC. This is what prompted her to come to the ED. She says that for the last couple of weeks she has been experiencing upper respiratory symptoms with runny nose, sore throat, headache, sinus pressure and drainage. She also says that she had some chills last night. She denies dizziness, chest pain, nausea, vomiting, diarrhea, constipation, joint or muscle weakness. She mentions that she was having some suprapubic pain and tenderness and her urine has been cloudy, yellow. In the ED her WBC count was elevated at 22.4 K/mm3 H, bands 22%, Na 131, BUN 18, and U/A grossly positive for UTI. Her chest x-ray shows emphysema but no concerns for pneumonia. Her SOB has resolved and she is back on her 4 L NC. She does have some audible expiratory wheeze throughout. She has been admitted for treatment of UTI with IV antibiotics, awaiting blood and urine cultures, and continued monitoring for respiratory distress. Review of Systems Review of Systems: All systems reviewed & are unremarkable except as noted in HPI and below PMFSH Past Medical History Medical History (Updated 01/30/23 @ 14:09 by Amanda Rizo APRN) Adult BMI 31.0-31.9 kg/sq m Adult BMI 34.0-34.9 kg/sq m Chronic obstructive lung disease Depression with anxiety Essential hypertension Exercise hypoxemia Hyperlipidemia Malignant neoplasm of upper lobe of left lung Obstructive sleep apnea (~05/2020) Mild, deferred treatment Rhinitis Tobacco dependence syndrome Surgical History Surgical History H/O section Family History Family History Mother Family history of congestive heart failure, Onset Age: 93 Hypertension Dementia Grandparent Family history of malignant neoplasm of breast Father Family history of cardiovascular disease, Onset Age: 55 Family history of coronary artery disease Sibling Family history of cardiovascular disease Family history of coronary artery disease Social History Social History (Updated 01/30/23 @ 14:06 by Amanda Rizo APRN) Social History: Retired from a [employer]. Lives with her , Hung who is her emergency contact. She has had three children, only 2 living sons. She has had her flu and covid vaccine this fall 2022. Smoking packs per day: 1.5 Smoking cigarettes per day: 30.0 Years smoked: 50 Smoking pack-years: 75.00 Smoking status: Former smoker Tobacco type: cigarettes Second hand tobacco smoke exposure: No Smoking end date: 10/13/13 Alcohol intake: current Drinks per week: 1 Alcohol use details: occasionally drinks a few beers every couple of weeks. Substance use: never Lack of Transportation: No Lack of Food: Never True Current Housing: I Have Housing Concerned About Future Housing: No Difficulty Paying Gas/Electric Bills: No Difficulty Paying for Meds: No Currently Unemployed: No Education: High School Diploma/GED Difficulty w/ Childcare or Family Care: No Living arrangements: with family Occupation/Education: retired Gender identity (if verbalized by the patient): Female Spiritual care concerns: No Meds Home Medications and Allergies Home Medications Medication Instructions Recorded Confirmed Type aspirin 81 mg tablet,delayed 81 mg PO DAILY 03/17/19 01/30/23 History release cholecalciferol (vitamin D3) 50 2,000 unit PO DAILY 03/17/19 01/30/23 History mcg (2,000 unit) capsule foihcpyp-upln-igbt 8 mg-folic 400 1 tablet PO DAILY 10/18/2001/30
[2023-01-30] MEDS: buPROPion HCL XL (24 HR) 150 MG TABCR 300 MG PO (15:05)
[2023-01-30] MEDS: THERAPEUTIC MULTIVITAMINS/MINERALS TAB (*BKC) 1 TABLET PO (15:05)
[2023-01-30] MEDS: CALCIUM CARBONATE (OSCAL) 500 MG TABLET PO (15:06)
[2023-01-30] MEDS: METOPROLOL SUCCINATE EXT REL 100 MG TABCR PO (15:06)
[2023-01-30] MEDS: lisinopriL 10 MG TABLET PO (15:06)
[2023-01-30] MEDS: ASPIRIN 81 MG ENTERIC TABLET PO (15:06)
[2023-01-30] MEDS: CITALOPRAM HYDROBROMIDE 20 MG TABLET 40 MG PO (15:06)
[2023-01-30] MEDS: CHOLECALCIFEROL 1,000 UNITS TABLET 2000 UNITS PO (15:06)
[2023-01-30] MEDS: LEVOTHYROXINE SODIUM 88 MCG TABLET PO (15:06)
[2023-01-30] MEDS: amLODIPine BESYLATE 5 MG TABLET PO (15:06)
[2023-01-30] MEDS: ALBUTEROL SULFATE (*SP) AEROSOL 1 PUFF INHALATION (15:07)
[2023-01-30] MEDS: levoFLOXacin 750 MG/D5W 150 ML 750 MG/150 ML BAG 100 MG IVPB (17:14)
[2023-01-30] MEDS: ALBUTEROL SULFATE NEB 2.5 MG/3 ML INH INHALATION (21:36)
[2023-01-30] MEDS: BUDESONIDE RESPULE NEB 0.5 MG/2 ML AMP INHALATION (21:36)
[2023-01-30] MEDS: MELATONIN 5 MG TABLET PO (22:19)
[2023-01-30] MEDS: ATORVASTATIN 20 MG TABLET PO (22:19)
[2023-01-31] VITALS (12 sets, daily range): BP systolic 150–157; BP diastolic 56–81; PULSE 84–118; RESP 18–22; TEMP 36–36.9; O2SAT 93–100
[2023-01-31] MEDS: LEVOTHYROXINE SODIUM 88 MCG TABLET PO (06:12)
--- NOTE | 2023-01-31 08:20 | PM.IMPN ---
Progress Note: A&P Assessment and Plan (1) UTI (urinary tract infection): Code(s): N39.0 - Urinary tract infection, site not specified Status: Acute Assessment and Plan: U/A shows UTI present WBC 22.4 on admission Reports suprapubic fullness and discomfort as well as cloudy, yellow urine Urine culture and blood cultures pending Started on 1 gram Rocephin Change to Levaquin 750 mg Q 48 hours to cover any possible concerns for PNA that would have prompted her acute on chronic respiratory failure. 01/31: Bacteremia gram negative bacilli isolated. Changed abx to 2 gram rocephin. (2) Chronic obstructive lung disease: Qualifiers: COPD type: unspecified COPD Qualified Code(s): J44.9 - Chronic obstructive pulmonary disease, unspecified Code(s): J44.9 - Chronic obstructive pulmonary disease, unspecified Status: Acute Assessment and Plan: On 4 L NC chronically. Complaints of decreased oxygen saturation of 88% at home on 4 L NC. SOB has resolved. Sating appropriately on baseline 4 L nc. Baseline cough, no sputum production Expiratory wheeze on assessment Added nebs and inhalers from home 01/31: stable. denies dyspnea today. on 4 L NC. No wheezing noted on assessment today. (3) Depression with anxiety: Code(s): F41.8 - Other specified anxiety disorders Status: Acute Assessment and Plan: Stable. On home meds bupropion, citalopram (4) Essential hypertension: Code(s): I10 - Essential (primary) hypertension Status: Acute Assessment and Plan: Home meds metoprolol, benzapril, and amlodpine Blood pressures are stable. SBP 140's-150's restarted home medications. 01/31: Blood pressures reviewed and are slightly HTNs. 150's. (5) Hyperlipidemia: Qualifiers: Hyperlipidemia type: unspecified Qualified Code(s): E78.5 - Hyperlipidemia, unspecified Code(s): E78.5 - Hyperlipidemia, unspecified Status: Acute Assessment and Plan: Stable. continue home statin (6) Obstructive sleep apnea: Onset Date: ~05/2020 Code(s): G47.33 - Obstructive sleep apnea (adult) (pediatric) Status: Acute Assessment and Plan: Ordered CPAP with autotitration Plan Feeding: regular diet Analgesia:tylenol Thromboembolic prophylaxis: lovenox Ulcer prophylaxis: na Glycemic control: na Bowel regimen: prn miralax Lines: PIV Antibiotics: 2 gram rocephin Disposition: home when clinically better Subjective Date/time seen: 01/31/23 08:20 Interval history: This is a 77 year old female with a PMH of COPD chronically on 4 L NC of oxygen, GEOVANI, HTN, depression/anxiety, HLD, and hypothyroidism. She states that last night around 0200 she was having shortness of breath and needed to increase her home oxygen from 4 L to 5 L NC. This is what prompted her to come to the ED. She says that for the last couple of weeks she has been experiencing upper respiratory symptoms with runny nose, sore throat, headache, sinus pressure and drainage. She also says that she had some chills last night. She denies dizziness, chest pain, nausea, vomiting, diarrhea, constipation, joint or muscle weakness.? She mentions that she was having some suprapubic pain and tenderness and her urine has been cloudy, yellow. In the ED her WBC count was elevated at 22.4 K/mm3 H, bands 22%, Na 131, BUN 18, and U/A grossly positive for UTI. Her chest x-ray shows emphysema but no concerns for pneumonia. Her SOB has resolved and she is back on her 4 L NC. She does have some audible expiratory wheeze throughout. She has been admitted for treatment of UTI with IV antibiotics, awaiting blood and urine cultures, and continued monitoring for respiratory distress. 01/31: Blood cultures are positive, gram negative bacilli isolated. Patient says she feels much better today. She is having less dyspnea on exertion. She says that her cough is her normal chronic cough
[2023-01-31] MEDS: buPROPion HCL XL (24 HR) 150 MG TABCR 300 MG PO (08:34)
[2023-01-31] MEDS: amLODIPine BESYLATE 5 MG TABLET PO (08:35)
[2023-01-31] MEDS: CALCIUM CARBONATE (OSCAL) 500 MG TABLET PO (08:35)
[2023-01-31] MEDS: THERAPEUTIC MULTIVITAMINS/MINERALS TAB (*BKC) 1 TABLET PO (08:35)
[2023-01-31] MEDS: CHOLECALCIFEROL 1,000 UNITS TABLET 2000 UNITS PO (08:35)
[2023-01-31] MEDS: lisinopriL 10 MG TABLET PO (08:35)
[2023-01-31] MEDS: METOPROLOL SUCCINATE EXT REL 100 MG TABCR PO (08:35)
[2023-01-31] MEDS: ASPIRIN 81 MG ENTERIC TABLET PO (08:35)
[2023-01-31] MEDS: CITALOPRAM HYDROBROMIDE 20 MG TABLET 40 MG PO (08:35)
[2023-01-31] MEDS: OPTI-GEN TAB 1 TABLET PO (08:35)
[2023-01-31] MEDS: cefTRIAXone 2 GM/NS 100 ML 2 GM/100 ML BAG IVPB (08:46)
[2023-01-31] MEDS: ENOXAPARIN 40 MG/0.4 ML SYRINGE SUB-Q (08:47)
[2023-01-31] MEDS: ALBUTEROL SULFATE NEB 2.5 MG/3 ML INH INHALATION ×4 (08:50→21:00)
[2023-01-31] MEDS: BUDESONIDE RESPULE NEB 0.5 MG/2 ML AMP INHALATION ×2 (08:50→21:00)
[2023-01-31 09:39] LABS: Alanine Aminotransferase 32 U/L (6-35); Albumin Level 3.9 g/dL (3.5-5.1); Alkaline Phosphatase 95 U/L (38-126); Anion Gap 7 mmol/L (8-16); Aspartate Amino Transferase 54 U/L (14-36); Bilirubin,Total 0.6 mg/dL (0.2-1.3); Blood Urea Nitrogen 19 mg/dL (7-17); Carbon Dioxide 35 mmol/L (22-30); Chloride 85 mmol/L (98-107); Estimated CRCL calculation 46 ml/min; Estimated Glomerular Filt Rate > 60; Glucose 116 mg/dL (65-110); Magnesium 1.9 mg/dL (1.6-2.3); Potassium 3.8 mmol/L (3.4-5.0); Sodium 127 mmol/L (137-145)
[2023-01-31 09:41] LABS: Hemoglobin 10.6 g/dL (12.0-15.0); Mean Corpuscular HGB Conc 32.1 g/dl (32-36); Mean Corpuscular Hemoglobin 29.8 pg (26-34); Mean Corpuscular Volume 92.7 fl (80-100); Mean Platelet Volume 11.7 fl (7.4-10.4); Platelet Count Result 232 k/mm3 (150-375); Red Blood Count 3.56 M/mm3 (4.2-5.4); Red Cell Distribution Width 12.4 % (11.5-14.5)
[2023-01-31 11:34] LABS: Band Neutrophils Percent 17 % (0-6); Lymphocytes Absolute Manual 1.05 K/mm3 (1.1-4.5); Monocytes Absolute Manual 0.84 K/mm3 (0.1-0.90); Monocytes Percent Manual 4 % (3-9); Neutrophils Absolute Manual 19.11 K/mm3 (1.7-7.2); Neutrophils Percent Manual 74 % (46-73); Total Cells Counted 100
[2023-01-31 11:35] LABS: Large Platelets Present; Platelet Estimate Adequate (Adequate); Schistocytes None Seen (NORMAL)
[2023-01-31 18:18] LABS: Sodium Urine Random 5 meq/L
[2023-01-31] MEDS: ATORVASTATIN 20 MG TABLET PO (21:04)
[2023-01-31] MEDS: MELATONIN 5 MG TABLET PO (21:04)
[2023-01-31] MEDS: traZODone HCL 50 MG TABLET 100 MG PO (22:36)
[2023-02-01] VITALS (15 sets, daily range): BP systolic 99–148; BP diastolic 67–85; PULSE 69–105; RESP 18; TEMP 35.8–36.8; O2SAT 89–100
--- NOTE | 2023-02-01 05:00 | ECG_ITS ---
Measurements Intervals [place] Rate: 92 P: GA: 0 QRS: 55 QRSD: 98 T: 62 QT: 365 QTc: 453 Interpretive Statements SINUS OR ECTOPIC ATRIAL RHYTHM DELAYED PRECORDIAL R/S TRANSITION BORDERLINE ST-T WAVE ABNORMALITY- HIGH LATERAL LEADS BASELINE ARTIFACT- I, II, III, AVL, AVF BORDERLINE ECG COMPARED TO ECG 01/30/2023 07:10:43 NO SIGNIFICANT CHANGES Electronically Signed On 02-01-2023 10:31:37 [employer] [employer] by Randy Baker D.O.
[2023-02-01] MEDS: LEVOTHYROXINE SODIUM 88 MCG TABLET PO (05:32)
[2023-02-01 07:55] LABS: Hematocrit 30.7 % (37.0-47.0); Mean Corpuscular HGB Conc 32.6 g/dl (32-36); Mean Corpuscular Hemoglobin 30.1 pg (26-34); Mean Corpuscular Volume 92.5 fl (80-100); Mean Platelet Volume 11.5 fl (7.4-10.4); Platelet Count Result 223 k/mm3 (150-375); Red Blood Count 3.32 M/mm3 (4.2-5.4); Red Cell Distribution Width 12.5 % (11.5-14.5); White Blood Count 13.6 K/mm3 (4.5-10.0)
[2023-02-01 08:06] LABS: Alanine Aminotransferase 35 U/L (6-35); Albumin Level 3.6 g/dL (3.5-5.1); Alkaline Phosphatase 86 U/L (38-126); Anion Gap 7 mmol/L (8-16); Aspartate Amino Transferase 51 U/L (14-36); Bilirubin,Total 0.4 mg/dL (0.2-1.3); Blood Urea Nitrogen 20 mg/dL (7-17); Calcium 8.9 mg/dL (8.4-10.2); Carbon Dioxide 33 mmol/L (22-30); Chloride 85 mmol/L (98-107); Estimated CRCL calculation 42 ml/min; Estimated Glomerular Filt Rate > 60; Glucose 106 mg/dL (65-110); Potassium 3.3 mmol/L (3.4-5.0); Sodium 125 mmol/L (137-145)
[2023-02-01 08:17] LABS: Band Neutrophils Percent 5 % (0-6); Hypochromasia 1+ (NORMAL); Lymphocytes Absolute Manual 0.81 K/mm3 (1.1-4.5); Lymphocytes Percent Manual 6 % (18-44); Monocytes Absolute Manual 1.49 K/mm3 (0.1-0.90); Monocytes Percent Manual 11 % (3-9); Neutrophils Absolute Manual 11.28 K/mm3 (1.7-7.2); Neutrophils Percent Manual 78 % (46-73); Platelet Estimate Adequate (Adequate); Total Cells Counted 100
[2023-02-01 08:18] LABS: Schistocytes None Seen (NORMAL)
[2023-02-01] MEDS: METOPROLOL SUCCINATE EXT REL 100 MG TABCR PO (08:57)
[2023-02-01] MEDS: cefTRIAXone 2 GM/NS 100 ML 2 GM/100 ML BAG IVPB (08:57)
[2023-02-01] MEDS: CITALOPRAM HYDROBROMIDE 20 MG TABLET 40 MG PO (08:57)
[2023-02-01] MEDS: CHOLECALCIFEROL 1,000 UNITS TABLET 2000 UNITS PO (08:59)
[2023-02-01] MEDS: CALCIUM CARBONATE (OSCAL) 500 MG TABLET PO (08:59)
[2023-02-01] MEDS: amLODIPine BESYLATE 5 MG TABLET PO (08:59)
[2023-02-01] MEDS: ASPIRIN 81 MG ENTERIC TABLET PO (08:59)
[2023-02-01] MEDS: lisinopriL 10 MG TABLET PO (08:59)
[2023-02-01] MEDS: OPTI-GEN TAB 1 TABLET PO (08:59)
[2023-02-01] MEDS: THERAPEUTIC MULTIVITAMINS/MINERALS TAB (*BKC) 1 TABLET PO (08:59)
[2023-02-01] MEDS: buPROPion HCL XL (24 HR) 150 MG TABCR 300 MG PO (08:59)
[2023-02-01] MEDS: ENOXAPARIN 40 MG/0.4 ML SYRINGE SUB-Q (09:01)
[2023-02-01] MEDS: BUDESONIDE RESPULE NEB 0.5 MG/2 ML AMP INHALATION ×2 (09:14→20:07)
[2023-02-01] MEDS: ALBUTEROL SULFATE NEB 2.5 MG/3 ML INH INHALATION ×5 (09:14→20:07)
--- NOTE | 2023-02-01 09:37 | PM.IMPN ---
Progress Note: A&P Assessment and Plan (1) UTI (urinary tract infection): Code(s): N39.0 - Urinary tract infection, site not specified Status: Acute Assessment and Plan: U/A shows UTI present WBC 22.4 on admission Reports suprapubic fullness and discomfort as well as cloudy, yellow urine Urine culture and blood cultures pending Started on 1 gram Rocephin Change to Levaquin 750 mg Q 48 hours to cover any possible concerns for PNA that would have prompted her acute on chronic respiratory failure. 01/31: Bacteremia gram negative bacilli isolated. Changed abx to 2 gram Rocephin. 02/01: WBC count decreasing 21-->13.6, afebrile (2) Chronic obstructive lung disease: Qualifiers: COPD type: unspecified COPD Qualified Code(s): J44.9 - Chronic obstructive pulmonary disease, unspecified Code(s): J44.9 - Chronic obstructive pulmonary disease, unspecified Status: Acute Assessment and Plan: On 4 L NC chronically. Complaints of decreased oxygen saturation of 88% at home on 4 L NC. SOB has resolved. Sating appropriately on baseline 4 L nc. Baseline cough, no sputum production Expiratory wheeze on assessment Added nebs and inhalers from home 01/31: stable. denies dyspnea today. on 4 L NC. No wheezing noted on assessment today. 02/01: wheezing. Can add on prednisone for 7 day course. (3) Depression with anxiety: Code(s): F41.8 - Other specified anxiety disorders Status: Acute Assessment and Plan: Stable. On home meds bupropion, citalopram (4) Essential hypertension: Code(s): I10 - Essential (primary) hypertension Status: Acute Assessment and Plan: Home meds metoprolol, benzapril, and amlodpine Blood pressures are stable. SBP 140's-150's restarted home medications. 01/31: Blood pressures reviewed and are slightly HTNs. 150's. (5) Hyperlipidemia: Qualifiers: Hyperlipidemia type: unspecified Qualified Code(s): E78.5 - Hyperlipidemia, unspecified Code(s): E78.5 - Hyperlipidemia, unspecified Status: Acute Assessment and Plan: Stable. continue home statin (6) Obstructive sleep apnea: Onset Date: ~05/2020 Code(s): G47.33 - Obstructive sleep apnea (adult) (pediatric) Status: Acute Assessment and Plan: Ordered CPAP with autotitration Plan Feeding: regular diet Analgesia:tylenol Thromboembolic prophylaxis: lovenox Ulcer prophylaxis: na Glycemic control: na Bowel regimen: prn miralax Lines: PIV Antibiotics: 2 gram rocephin Disposition: home when clinically better Subjective Date/time seen: 02/01/23 09:37 Interval history: This is a 77 year old female with a PMH of COPD chronically on 4 L NC of oxygen, GEOVANI, HTN, depression/anxiety, HLD, and hypothyroidism. She states that last night around 0200 she was having shortness of breath and needed to increase her home oxygen from 4 L to 5 L NC. This is what prompted her to come to the ED. She says that for the last couple of weeks she has been experiencing upper respiratory symptoms with runny nose, sore throat, headache, sinus pressure and drainage. She also says that she had some chills last night. She denies dizziness, chest pain, nausea, vomiting, diarrhea, constipation, joint or muscle weakness.? She mentions that she was having some suprapubic pain and tenderness and her urine has been cloudy, yellow. In the ED her WBC count was elevated at 22.4 K/mm3 H, bands 22%, Na 131, BUN 18, and U/A grossly positive for UTI. Her chest x-ray shows emphysema but no concerns for pneumonia. Her SOB has resolved and she is back on her 4 L NC. She does have some audible expiratory wheeze throughout. She has been admitted for treatment of UTI with IV antibiotics, awaiting blood and urine cultures, and continued monitoring for respiratory distress. 01/31: Blood cultures are positive, gram negative bacilli isolated. Patient says she feels mu
[2023-02-01] MEDS: SODIUM CHLORIDE 1 GM TABLET PO ×2 (10:37→17:16)
[2023-02-01] MEDS: predniSONE 20 MG TABLET 40 MG PO (14:05)
[2023-02-01] MEDS: traZODone HCL 50 MG TABLET 100 MG PO (21:08)
[2023-02-01] MEDS: ATORVASTATIN 20 MG TABLET PO (21:08)
[2023-02-02] VITALS (9 sets, daily range): BP systolic 123–160; BP diastolic 76–85; PULSE 82–101; RESP 18–20; TEMP 36.1–36.5; O2SAT 94–100
[2023-02-02] MEDS: ALBUTEROL SULFATE NEB 2.5 MG/3 ML INH INHALATION ×3 (03:42→12:52)
[2023-02-02] MEDS: LEVOTHYROXINE SODIUM 88 MCG TABLET PO (05:32)
[2023-02-02] MEDS: METOPROLOL SUCCINATE EXT REL 100 MG TABCR PO (08:33)
[2023-02-02] MEDS: CITALOPRAM HYDROBROMIDE 20 MG TABLET 40 MG PO (08:33)
[2023-02-02] MEDS: amLODIPine BESYLATE 5 MG TABLET PO (08:33)
[2023-02-02] MEDS: SODIUM CHLORIDE 1 GM TABLET PO (08:33)
[2023-02-02] MEDS: CHOLECALCIFEROL 1,000 UNITS TABLET 2000 UNITS PO (08:33)
[2023-02-02] MEDS: predniSONE 20 MG TABLET 40 MG PO (08:33)
[2023-02-02] MEDS: lisinopriL 10 MG TABLET PO (08:33)
[2023-02-02] MEDS: cefTRIAXone 2 GM/NS 100 ML 2 GM/100 ML BAG IVPB (08:33)
[2023-02-02] MEDS: OPTI-GEN TAB 1 TABLET PO (08:33)
[2023-02-02] MEDS: THERAPEUTIC MULTIVITAMINS/MINERALS TAB (*BKC) 1 TABLET PO (08:33)
[2023-02-02] MEDS: buPROPion HCL XL (24 HR) 150 MG TABCR 300 MG PO (08:34)
[2023-02-02] MEDS: ASPIRIN 81 MG ENTERIC TABLET PO (08:35)
[2023-02-02] MEDS: CALCIUM CARBONATE (OSCAL) 500 MG TABLET PO (08:35)
[2023-02-02] MEDS: ENOXAPARIN 40 MG/0.4 ML SYRINGE SUB-Q (08:36)
--- NOTE | 2023-02-02 08:41 | P.PNIM_ITS ---
Progress Note: A&P Assessment and Plan (1) UTI (urinary tract infection): Code(s): N39.0 - Urinary tract infection, site not specified Status: Acute Assessment and Plan: U/A shows UTI present * WBC 22.4 on admission * Reports suprapubic fullness and discomfort as well as cloudy, yellow urine * Urine culture and blood cultures pending * Started on 1 gram Rocephin * Change to Levaquin 750 mg Q 48 hours to cover any possible concerns for PNA that would have prompted her acute on chronic respiratory failure. 01/31: Bacteremia gram negative bacilli isolated. Changed abx to 2 gram Rocephin. 02/01: WBC count decreasing 21-->13.6, afebrile (2) Chronic obstructive lung disease: Qualifiers: COPD type: unspecified COPD Qualified Code(s): J44.9 - Chronic obstructive pulmonary disease, unspecified Code(s): J44.9 - Chronic obstructive pulmonary disease, unspecified Status: Acute Assessment and Plan: On 4 L NC chronically. Complaints of decreased oxygen saturation of 88% at home on 4 L NC. * SOB has resolved. * Sating appropriately on baseline 4 L nc. * Baseline cough, no sputum production * Expiratory wheeze on assessment * Added nebs and inhalers from home 01/31: stable. denies dyspnea today. on 4 L NC. No wheezing noted on assessment today. 02/01: wheezing. Can add on prednisone for 7 day course. (3) Depression with anxiety: Code(s): F41.8 - Other specified anxiety disorders Status: Acute Assessment and Plan: Stable. On home meds bupropion, citalopram (4) Essential hypertension: Code(s): I10 - Essential (primary) hypertension Status: Acute Assessment and Plan: Home meds metoprolol, benzapril, and amlodpine * Blood pressures are stable. SBP 140's-150's * restarted home medications. 01/31: Blood pressures reviewed and are slightly HTNs. 150's. (5) Hyperlipidemia: Qualifiers: Hyperlipidemia type: unspecified Qualified Code(s): E78.5 - Hyperlipidemia, unspecified Code(s): E78.5 - Hyperlipidemia, unspecified Status: Acute Assessment and Plan: Stable. continue home statin (6) Obstructive sleep apnea: Onset Date: ~05/2020 Code(s): G47.33 - Obstructive sleep apnea (adult) (pediatric) Status: Acute Assessment and Plan: Ordered CPAP with autotitration Plan Feeding: regular diet Analgesia:tylenol Thromboembolic prophylaxis: lovenox Ulcer prophylaxis: na Glycemic control: na Bowel regimen: prn miralax Lines: PIV Antibiotics: 2 gram rocephin Disposition: home when clinically better Subjective Date/time seen: 02/02/23 08:41 Interval history: This is a 77 year old female with a PMH of COPD chronically on 4 L NC of oxygen, GOEVANI, HTN, depression/anxiety, HLD, and hypothyroidism. She states that last night around 0200 she was having shortness of breath and needed to increase her home oxygen from 4 L to 5 L NC. This is what prompted her to come to the ED. She says that for the last couple of weeks she has been experiencing upper respiratory symptoms with runny nose, sore throat, headache, sinus pressure and drainage. She also says that she had some chills last night. She denies dizziness, chest pain, nausea, vomiting, diarrhea, constipation, joint or muscle weakness.? She mentions that she was having some suprapubic pain and tenderness and her urine has been cloudy, yellow. In the ED her WBC count was elevated at 22.4 K/mm3 H, bands 22%, Na 131, BUN 18, and U/A grossly positive for UTI. Her chest x-ray shows emph
[2023-02-02] MEDS: BUDESONIDE RESPULE NEB 0.5 MG/2 ML AMP INHALATION (09:02)
[2023-02-02 09:10] LABS: Basophils Percent Auto 0.2 % (0.2-1.2); Eosinophils Percent Auto 0.2 % (0-4.4); Hematocrit 32.2 % (37.0-47.0); Hemoglobin 10.2 g/dL (12.0-15.0); Immature Granulocyte Absolute 0.11 K/mm3 (0.00-0.031); Immature Granulocyte Percent A 0.9 % (0-0.5); Lymphocytes Absolute Auto 1.07 K/mm3 (0.9-3.2); Lymphocytes Percent Auto 9.1 % (18.3-44.2); Mean Corpuscular HGB Conc 31.7 g/dl (32-36); Mean Corpuscular Hemoglobin 29.9 pg (26-34); Mean Corpuscular Volume 94.4 fl (80-100); Mean Platelet Volume 11.1 fl (7.4-10.4); Monocytes Absolute Auto 1.7 K/mm3 (0.1-0.6); Monocytes Percent Auto 14.5 % (2.6-8.5); Neutrophils Absolute Auto 8.8 K/mm3 (1.3-6.7); Neutrophils Percent Auto 75.1 % (45.5-73.1); Platelet Count Result 258 k/mm3 (150-375); Red Blood Count 3.41 M/mm3 (4.2-5.4); Red Cell Distribution Width 12.5 % (11.5-14.5); White Blood Count 11.7 K/mm3 (4.5-10.0)
[2023-02-02 09:19] LABS: Alanine Aminotransferase 41 U/L (6-35); Albumin Level 3.7 g/dL (3.5-5.1); Alkaline Phosphatase 78 U/L (38-126); Anion Gap 6 mmol/L (8-16); Aspartate Amino Transferase 45 U/L (14-36); Bilirubin,Total 0.3 mg/dL (0.2-1.3); Blood Urea Nitrogen 19 mg/dL (7-17); Calcium 9.3 mg/dL (8.4-10.2); Carbon Dioxide 39 mmol/L (22-30); Chloride 90 mmol/L (98-107); Estimated CRCL calculation 42 ml/min; Estimated Glomerular Filt Rate > 60; Glucose 98 mg/dL (65-110); Potassium 3.4 mmol/L (3.4-5.0); Sodium 135 mmol/L (137-145)
--- NOTE | 2023-02-02 17:17 | PM.DS ---
DS: Admitting Diagnosis Discharge Date 02/02/23 Admitting Diagnosis SOb DS: Discharge Diagnosis Discharge Diagnosis (1) UTI (urinary tract infection): Code(s): N39.0 - Urinary tract infection, site not specified Status: Acute Assessment and Plan: U/A shows UTI present WBC 22.4 on admission Reports suprapubic fullness and discomfort as well as cloudy, yellow urine Urine culture and blood cultures pending Started on 1 gram Rocephin Change to Levaquin 750 mg Q 48 hours to cover any possible concerns for PNA that would have prompted her acute on chronic respiratory failure. 01/31: Bacteremia gram negative bacilli isolated. Changed abx to 2 gram Rocephin. 02/01: WBC count decreasing 21-->13.6, afebrile (2) Chronic obstructive lung disease: Qualifiers: COPD type: unspecified COPD Qualified Code(s): J44.9 - Chronic obstructive pulmonary disease, unspecified Code(s): J44.9 - Chronic obstructive pulmonary disease, unspecified Status: Acute Assessment and Plan: On 4 L NC chronically. Complaints of decreased oxygen saturation of 88% at home on 4 L NC. SOB has resolved. Sating appropriately on baseline 4 L nc. Baseline cough, no sputum production Expiratory wheeze on assessment Added nebs and inhalers from home 01/31: stable. denies dyspnea today. on 4 L NC. No wheezing noted on assessment today. 02/01: wheezing. Can add on prednisone for 7 day course. (3) Depression with anxiety: Code(s): F41.8 - Other specified anxiety disorders Status: Acute Assessment and Plan: Stable. On home meds bupropion, citalopram (4) Essential hypertension: Code(s): I10 - Essential (primary) hypertension Status: Acute Assessment and Plan: Home meds metoprolol, benzapril, and amlodpine Blood pressures are stable. SBP 140's-150's restarted home medications. 01/31: Blood pressures reviewed and are slightly HTNs. 150's. (5) Hyperlipidemia: Qualifiers: Hyperlipidemia type: unspecified Qualified Code(s): E78.5 - Hyperlipidemia, unspecified Code(s): E78.5 - Hyperlipidemia, unspecified Status: Acute Assessment and Plan: Stable. continue home statin (6) Obstructive sleep apnea: Onset Date: ~05/2020 Code(s): G47.33 - Obstructive sleep apnea (adult) (pediatric) Status: Acute Assessment and Plan: Ordered CPAP with autotitration Plan Feeding: regular diet Analgesia:tylenol Thromboembolic prophylaxis: lovenox Ulcer prophylaxis: na Glycemic control: na Bowel regimen: prn miralax Lines: PIV Antibiotics: 2 gram rocephin Disposition: home when clinically better DS: Summary Hospital Course Hospital Course: This is a 77 year old female with a PMH of COPD chronically on 4 L NC of oxygen, GEOVANI, HTN, depression/anxiety, HLD, and hypothyroidism. She states that last night around 0200 she was having shortness of breath and needed to increase her home oxygen from 4 L to 5 L NC. This is what prompted her to come to the ED. She says that for the last couple of weeks she has been experiencing upper respiratory symptoms with runny nose, sore throat, headache, sinus pressure and drainage. She also says that she had some chills last night. She denies dizziness, chest pain, nausea, vomiting, diarrhea, constipation, joint or muscle weakness.? She mentions that she was having some suprapubic pain and tenderness and her urine has been cloudy, yellow. In the ED her WBC count was elevated at 22.4 K/mm3 H, bands 22%, Na 131, BUN 18, and U/A grossly positive for UTI. Her chest x-ray shows emphysema but no concerns for pneumonia. Her SOB has resolved and she is back on her 4 L NC. She does have some audible expiratory wheeze throughout. She has been admitted for treatment of UTI with IV antibiotics, awaiting blood and urine cultures, and continued monitoring for respiratory distress. 01/31: Blood cultures are
[2023-02-03 15:59] LABS: Osmolality, Urine 293 mOsm/kg (50-1200)
== END 2023-02-02 14:20 | disposition home or self-care (01) | DRG 690 ==
LOC: ANHED 07:38 → ANH3MEDSUR 11:25
PROVIDERS: Admitting Provider Student in an Organized Health Care Education/Training Program; Emergency Provider Emergency Medicine; PCP Family Medicine; Visit Provider Nurse Practitioner Acute Care
DX: N39.0 Urinary tract infection, site not specified (principal); R78.81 Bacteremia; B96.20 Unspecified Escherichia coli [E. coli] as the cause of diseases classified elsewhere; E03.9 Hypothyroidism, unspecified; E78.5 Hyperlipidemia, unspecified; F41.8 Other specified anxiety disorders; G47.33 Obstructive sleep apnea (adult) (pediatric); I10 Essential (primary) hypertension; J43.9 Emphysema, unspecified; Z85.118 Personal history of other malignant neoplasm of bronchus and lung; Z87.891 Personal history of nicotine dependence; Z20.822 Contact with and (suspected) exposure to COVID-19; Z99.81 Dependence on supplemental oxygen; Z79.82 Long term (current) use of aspirin
CPT/HCPCS: 36415; 71046; 80053; 81001; 83735; 83935; 84300; 85025; 87040; 87077; 87086; 87186; 87636; 93005; 94640; 96365; 96367; 99285; A9270; G0378; J0696; J1650; J1956; J7512

== ENCOUNTER 2023-10-12 14:35 | Outpatient (CLI) | payer MEDICARE, SELFPAY ==
--- NOTE | 2023-10-12 14:40 | ECHO_ITS ---
Patient Info Name: Su Bustillos Age: 77 years : 1945 Gender: Female Ht: 60 in Wt: 161 lbs BSA: 1.79 m2 HR: 75 bpm BP: 153 / 89 mmHg Heart Rhythm: Sinus Rhythm Technical Quality: Good Exam Date: 10/12/2023 3:03 PM Exam Location: Echo Lab Patient Status: Outpatient Admit Date: 10/12/2023 Staff Ordering Physician: Gio Ann APRN Supervisor Telephone Answering Service: Martha Estrella RDCS Attending Provider: Gio Ann APRN Referring Physician: Seth JEFFREY; Exam Type: CA echo doppler color flow Study Info Indications - other forms of dyspnea Complete two-dimensional, color flow and Doppler transthoracic echocardiogram is performed. Summary 1. Left ventricular chamber dimension is normal. 2. Left ventricular systolic function is normal, estimated at 55-60%. 3. There is mildly increased left ventricular wall thickness. 4. The left ventricular diastolic function is grade I diastolic dysfunction. 5. Right ventricular systolic function is normal. 6. Left atrial chamber dimension is mildly enlarged. 7. Right atrial chamber dimension is mildly enlarged. 8. There is moderate mitral valve regurgitation. 9. There is mild tricuspid valve regurgitation. Left Ventricle Left ventricular chamber dimension is normal. Left ventricular systolic function is normal, estimated at 55-60%. There is mildly increased left ventricular wall thickness. The left ventricular diastolic function is grade I diastolic dysfunction. Right Ventricle Right ventricular chamber dimension is normal. Right ventricular systolic function is normal. Left Atria Left atrial chamber dimension is mildly enlarged. Right Atria Right atrial chamber dimension is mildly enlarged. Atrial Septum Intact interatrial septum visualized by color flow imaging. Aortic Valve The aortic valve is probable trileaflet. There is no aortic valve stenosis. There is no aortic valve regurgitation. There is mild aortic valve calcification. Pulmonic Valve The pulmonic valve is not well visualized. Mitral Valve There is moderate mitral valve regurgitation. The mitral valve annulus is mildly calcified. Tricuspid Valve There is mild tricuspid valve regurgitation. Pericardium/Pleural The pericardium appears epicardial fat pad. There is no pericardial effusion. Inferior Vena Cava Normal inferior vena cava with >50% collapse upon inspiration consistent with normal right atrial pressure, 3 mmHg. Aorta The aortic root size at the sinus of Valsalva is normal. Left Ventricular Outflow Tract Name Value Normal LVOT 2D LVOT Diameter 1.8 cm LVOT Doppler LVOT Peak Gradient 4 mmHg LVOT Mean Gradient 2 mmHg LVOT VTI 23 cm LVOT VTI/AV VTI Ratio 0.6 LVOT Stroke Volume 59 ml LVOT CO 3.4 l/min LVOT CI 1.9 l/min/m2 Pulmonic Valve Name Value Normal PV Doppler -------
== END 2023-10-12 14:36 | disposition home or self-care (01) ==
LOC: ANHCARD 14:38
PROVIDERS: PCP Family Medicine; Visit Provider Nurse Practitioner Family
DX: R01.1 Cardiac murmur, unspecified (principal); R06.09 Other forms of dyspnea
CPT/HCPCS: 93306

== ENCOUNTER 2023-12-22 12:40 | Outpatient (CLI) | payer MEDICARE, SELFPAY ==
--- NOTE | ~2023-12-22 | DEXA_ITS ---
Bone Density Report Name: RUBINA TSAI Age: 78 Sex: Female Ethnicity: White Date of : 1945 Indication: postmenopausal; screening for osteoporosis; height loss; cancer; asthma or emphysema; Referring Provider: MEGHANN TOBIAS Study: Bone densitometry was performed. Exam Date: December 22, 2023 Accession number: [id number] Bone Density: Region BMD T-score Z-score Classification AP Spine(L1-L4) 1.225 1.6 4.2 Normal Femoral Neck (Left) 0.684 -1.5 0.7 Osteopenia Total Hip (Left) 0.878 -0.5 1.4 Normal Femoral Neck (Right) 0.616 -2.1 0.1 Osteopenia Total Hip (Right) 0.851 -0.7 1.2 Normal Total Hip Mean 0.865 -0.6 1.3 Normal World Health Organization criteria for BMD impression classify patients as: Normal (T-score at or above -1.0), Osteopenia (T-score between -1.0 and -2.5), or Osteoporosis (T-score at or below -2.5). 10-year Fracture Risk(1): Major Osteoporotic Fracture 14% Hip Fracture 3.9% Reported Risk Factors: [place] (), Neck BMD=0.616, BMI=31.7 (1) FRAX(R) Version 3.08. Fracture probability calculated for an untreated patient. Fracture probability may be lower if the patient has received treatment. Previous Exams: Region Exam Age BMD T-score BMD Change BMD Change Date g/cm2 vs Baseline vs Previous AP Spine (L1-L4) 12/22/2023 78 1.225 1.6 0.029 (2.4%)# 0.029 (2.4%)# 01/28/2012 66 1.196 1.4 Total Hip(Left) 12/22/2023 78 0.878 -0.5 0.012 (1.4%)# 0.037 (4.4%)* 09/14/2018 72 0.841 -0.8 -0.025 (-2.9%) -0.032 (-3.7%) 06/19/2015 69 0.873 -0.6 0.007 (0.8%)# 0.007 (0.8%)# 01/28/2012 66 0.866 -0.6 Total Hip(Right) 12/22/2023 78 0.851 -0.7 0.022 (2.7%)# -0.006 (-0.7%) 09/14/2018 72 0.858 -0.7 0.028 (3.4%)# 0.009 (1.0%) 06/19/2015 69 0.849 -0.8 0.019 (2.3%)# 0.019 (2.3%)# 01/28/2012 66 0.829 -0.9 *Denotes significance at 95% confidence level, LSC for AP Spine = 0.022 g/cm2, LSC for Total Hip = 0.027 g/cm2 # Denotes dissimilar scan types or analysis methods Clinical Information Provided by Patient: Has used the following medications: Vitamin D, Calcium Has the following medical conditions: Asthma or Emphysema, Cancer Patient maximum height was 62.0 Menopause Age: 52 No regular weight bearing exercise Drinks caffeinated beverages Onset of menses at age 11 Number of children 3 Impression: The patient has low bone mass, based on the
== END 2023-12-22 12:41 | disposition home or self-care (01) ==
LOC: ANHIMG 12:41
PROVIDERS: PCP Family Medicine; Visit Provider Nurse Practitioner Family
DX: M85.89 Other specified disorders of bone density and structure, multiple sites (principal); Z78.0 Asymptomatic menopausal state
CPT/HCPCS: 77080

== ENCOUNTER 2024-02-04 12:47 | Outpatient (CLI) | payer MEDICARE, SELFPAY ==
[2024-02-04 13:13] LABS: Hematocrit 35.1 % (37.0-47.0); Hemoglobin 11.2 g/dL (12.0-15.0); Mean Corpuscular HGB Conc 31.9 g/dl (32-36); Mean Corpuscular Hemoglobin 30.9 pg (26-34); Mean Corpuscular Volume 96.7 fl (80-100); Mean Platelet Volume 11.8 fl (7.4-10.4); Platelet Count Result 214 k/mm3 (150-375); Red Blood Count 3.63 M/mm3 (4.2-5.4); Red Cell Distribution Width 12.6 % (11.5-14.5); White Blood Count 8.4 K/mm3 (4.5-10.0)
[2024-02-04 13:37] LABS: Alanine Aminotransferase 19 U/L (6-35); Albumin Level 4.1 g/dL (3.5-5.1); Alkaline Phosphatase 80 U/L (38-126); Aspartate Amino Transferase 31 U/L (14-36); Bilirubin,Total 0.5 mg/dL (0.2-1.3); Blood Urea Nitrogen 14 mg/dL (7-17); Calcium 9.6 mg/dL (8.4-10.2); Carbon Dioxide > 40 mmol/L (22-30); Chloride 93 mmol/L (98-107); Cholesterol 170 mg/dL (0-200); Estimated Glomerular Filt Rate > 60; Glucose 95 mg/dL (65-110); HDL Direct 80 mg/dL; Potassium 4.3 mmol/L (3.4-5.0); Sodium 136 mmol/L (137-145); Triglycerides 77 mg/dL (<150)
[2024-02-04 13:46] LABS: LDL Cholesterol Direct 57 mg/dL
[2024-02-04 13:55] LABS: Free T4 Free Thyroxine 1.39 ng/mL (0.78-2.19); Vitamin D 25 Hydroxy 79.2 ng/mL
== END 2024-02-04 12:48 | disposition home or self-care (01) ==
LOC: ANHLAB 12:48
PROVIDERS: PCP Family Medicine; Visit Provider Nurse Practitioner Family
DX: E78.5 Hyperlipidemia, unspecified (principal); E03.9 Hypothyroidism, unspecified; F41.8 Other specified anxiety disorders; I10 Essential (primary) hypertension; J44.9 Chronic obstructive pulmonary disease, unspecified; E66.9 Obesity, unspecified; Z68.31 Body mass index [BMI] 31.0-31.9, adult; E55.9 Vitamin D deficiency, unspecified
CPT/HCPCS: 36415; 80053; 80061; 82306; 84439; 84443; 85027

== ENCOUNTER 2024-04-27 15:08 | Outpatient (CLI) | payer MEDICARE, SELFPAY ==
--- NOTE | ~2024-04-27 | MM_ITS ---
EXAMINATION: MM screening anisha BI w candy HISTORY: Screening TECHNIQUE: Craniocaudal and mediolateral oblique 3-D tomosynthesis images were obtained and synthetic 2-D images were generated. CAD analysis was submitted and interpreted. COMPARISON: Comparison to multiple prior studies sequentially, with oldest reviewed study dated 07/06. BREAST PARENCHYMAL COMPOSITION: Not dense: There are scattered areas of fibroglandular density. FINDINGS: There is no evidence of suspicious mass, calcification, or architectural distortion to sugg est malignancy in either breast. There has been no suspicious interval change. IMPRESSION: 1. No mammographic evidence of malignancy. 2. Recommend routine screening mammography in one year. BI-RADS Category 1: Negative Reviewed, dictated and finalized at location B. TER TEACHER
--- OUTSIDE RECORDS SUMMARY | 2024-04-27 15:11 | XMS_ITS | Clinical Summary ---
Author Organization [facility] Address [facility] [place] [address] Care Team Providers Care Process Safety Manager Name Role Phone Les Hart MD Primary Care Provider [phone] Allergies No known active allergies Medications VENTOLIN HFA 108 (90 Base) MCG/ACT inhaler INHALE 1 TO 2 PUFFS BY MOUTH EVERY 4 TO 6 HOURS NEEDED FOR SHORTNESS OF BREATH OR WHEEZING 3 Active amLODIPine (NORVASC) 5 MG tablet 3 Active arformoterol (BROVANA) 15 MCG/2ML Nebu Soln Inhale 2 mLs (15 mcg total) into the lungs. Active aspirin EC (ECOTRIN) 81 MG tablet Take 1 tablet (81 mg total) by mouth. Active atorvastatin (LIPITOR) 20 MG tablet Take 1 tablet (20 mg total) by mouth nightly at bedtime. at bedtime. 4 Active benazepril (LOTENSIN) 10 MG tablet 3 Active buPROPion XL (WELLBUTRIN XL) 300 MG 24 hr tablet 3 Active budesonide (PULMICORT) 0.25 MG/2ML nebulizer solution Inhale 2 mLs (0.25 mg total) into the lungs. Active Cholecalciferol 50 MCG (2000 UT) Cap Take 2,000 Units by mouth. Active citalopram (CELEXA) 20 MG tablet 3 Active fluticasone-leonor meterol (ADVAIR DISKUS) 250-50 MCG/ACT inhaler 2 (two) times daily. Active ipratropium-alb uterol (COMBIVENT RESPIMAT) 20-100 MCG/ACT inhaler Inhale 1 puff into the lungs. Active levothyroxine (SYNTHROID) 88 MCG tablet 3 Active metoprolol succinate ER (TOPROL-XL) 100 MG 24 hr tablet Take 1 tablet (100 mg total) by mouth daily. 3 Active predniSONE (DELTASONE) 20 MG tablet TAKE 2 TABLETS BY MOUTH ONCE DAILY AT 8 AM 3 Active traZODone (DESYREL) 50 MG tablet TAKE 2 TABLETS BY MOUTH AT BEDTIME NEEDED FOR INSOMNIA 4 Active valACYclovir (VALTREX) 1 g tablet Take 1 tablet (1,000 mg total) by mouth every 8 (eight) hours. 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 ([facility]) 09/04/2016 Immunizations Name Administration Dates Next Due Influenza (Generic) 01/02/2014,01/19/2012 Influenza Adult (Generic) 01/21/2019,04/2017,12/29/2016,2015,12/17/2014,03/12/2013 MODERNA COVID-19 (12+) MRNA, LNP-S, PF, 100 MCG/ 0.5 ML DOSE 05/08/2020 PFIZER COVID-19 (ORIGINAL FORMULATION, PURPLE CAP) mRNA, LNP-S, PF, 30 MCG/0.3 ML DOSE 02/25/2021,06/06/2020,05/16/2020 Pneumococcal (Prevnar 13) 01/06/2018 Shingrix 04/18/2019,01/21/2019 Tdap (Generic) 04/11/2015 Family History Medical History Relation Comments Heart Disease Father Dementia Mother Relation Status Comments Father Mother Social History Tobacco Use Types Packs/Day Years Used Date Smoking Tobacco: Former Cigarettes Q uit: 10/20/2013 Smokeless Tobacco: Never Alcohol Use Standard Drinks/Week Comments No 0 (1 standard drink = 0.6 oz pur e alcohol) AUDIT-C Answer Date Recorded Frequency of Alcohol Consumption Never 08/20/2018 Average Number of Drinks Not on file 019 Frequency of Binge Drinking Not on file 10/2018 Comments Unknown Sex and Gender Information Value Date Recorded Sex Assigned at Not on file Legal Sex Female 6:49 PM CDT Gender Identity Not on file Sexual Orientation Not on file Last Filed Vital Signs Vital Sign Reading Time Taken Comments Blood Pressure 140/72 05/20/2023 1:11 PM KITCHEN STEWARDESS Pulse 72 05/20/2023 1:11 PM KITCHEN STEWARDESS Temperature 36.9 C (98.5 F) 08/20/2018 5:12 PM CDT Respiratory Rate 18 08/20/2018 5:12 PM CDT Oxygen Saturation 93% 08/20/2018 5:12 PM CDT Inhaled Oxygen Concentration - - Weight 70.9 kg (156 lb 6.4 oz) 05/20/2023 1:11 P M KITCHEN STEWARDESS Height 152.4 cm (5') 05/20/2023 1:11 PM KITCHEN STEWARDESS Body Mass Index 30.54 05/20/2023 1:11 PM KITCHEN STEWARDESS Plan of Treatment Upcoming Encounters Date Type Department Care Team (Late st Contact Info) Description 05/18/2024 1:15 PM KITCHEN STEWARDESS Office Visit [facility], [facility] [address] [place], [place] [id number] Rich Guy MD [facility]. [facility] [address] [place], [place] [id number] Health Maintenance Due Date Last Done Comments Hepatitis C 11/18/1963 Annual Medicare Wellness Visit 2010 Dexa Scan (General) 2010 Pneumococcal Vaccine: 65+ Years (2 of 2 - PPSV23 or PCV20) 03/03/2018 01/06/2018 RSV Immunization or 60+ Years (1 - 1-dose 75+ series) 2020 COVID-19 Vaccine ( - season) 2023 02/25/2021, 06/06/2020, 05/16/2020, Additional history exists Influenza Adult (#1) 2023 01/21/2019, 01/14/2018, 12/29/2016, Additional history exists DTaP, Tdap and Td Vaccines (2 - Td or Tdap) 04/11/2025 04/11/2015 Zoster Vaccines Completed 04/18/2019, 01/21/2019 Meningococcal B Vaccine Aged Out No l onger eligible based on patient's age to complete this topic Meningococcal Vaccine Aged Out No kelly kinsey eligible based on patient's age to complete this topic RSV Immunizations Under 20 Months Aged Out No longer eligible based on patient's age to complete this topic Insurance MEDICARE AETNA Care Teams Process Safety Manager Relationship Specialty Start Date End Date Les Hart MD [address] [place] [address] PCP - General FAMILY PRACTICE 08/20/18
--- OUTSIDE RECORDS SUMMARY | 2024-04-27 15:11 | XMS_ITS | Referral Summary ---
Author Organization [facility] Address [address] [place] [address] Care Team Providers Care Administration Dean Name Role Phone Les Hart MD Primary Care Provider Yaneth Davis NP Unavailable Sukhi Jacobson MD Unavailable Echo Combs MD Unavailable Skye Andujar NP Unavailable [phone] Allergies No known active allergies Medications fluticasone-salme terol (ADVAIR DISKUS) 250-50 mcg/dose diskus inhaler 2 times daily. Activ e amLODIPine (NORVASC) 5 mg tablet 08/18/19 18 Active atorvastatin (LIPITOR) 20 mg tablet 07/07/19 18 Active aspirin (ASPIRIN LOW DOSE) 81 mg tablet daily. Active benazepril (LOTENSIN) 10 mg tablet daily. Active levothyroxine (SYNTHROID, LEVOTHROID) 88 mcg tablet 07/07/19 18 Active metoprolol XL (TOPROL-XL) 100 mg 24 hr tablet daily. Acti ve dextromethorphan- guaiFENesin (ROBITUSSIN-DM) 2-20 mg/mL liquid every 4 hours. Active tiotropium bromide (SPIRIVA RESPIMAT) 2.5 mcg/actuation mist daily Active albuterol HFA (VENTOLIN HFA) 90 mcg/actuation inhaler INHALE 90 MCG As Needed Active cholecalciferol (VITAMIN D-3) 2,000 unit capsule Active HYDROcodone-chlor pheniramine ER (TUSSIONEX PENNKINETIC) 2-1.6 mg/mL ER suspension 0 06/26/19 18 Active citalopram (CeleXA) 20 mg tablet 07/07/19 18 Active budesonide (PULMICORT) 0.25 mg/2 mL nebulizer solution Take 2 mL (0.25 mg total) by nebulization 2 (two) times a day Rinse mouth with water after use. Do not swallow. Active Nystatin/Lidocain e/Diphenhyd (FIRST-BXN MM) Apply to mouth. Active arformoterol (BROVANA) 15 mcg/2 mL nebulizer solution Take by nebulization 2 (two) times a day. Active ipratropium-albut nereida (COMBIVENT RESPIMAT) 20-100 mcg/actuation inhalerIndication s:Chronic Obstructive Pulmonary Disease with Bronchospasms Inhale 1 puff 2 (two) times a day. Active multivitamin (Multiple Vitamins) tablet Take by mouth Active buPROPion XL (WELLBUTRIN XL) 300 mg 24 hr tablet Take 1 tablet (300 mg total) by mouth every morning 08/15/19 21 Active eszopiclone (LUNESTA) 2 mg tablet TAKE 1 TABLET WITH YOU TO THE SLEEP CENTER 07/30/19 21 Active eszopiclone (LUNESTA) 1 mg tablet 0 08/02/19 21 Active azelastine (ASTELIN) 137 mcg (0.1 %) nasal spray 09/21/19 24 Active predniSONE (DELTASONE) 20 mg tablet TAKE 2 TABLETS BY MOUTH ONCE DAILY AT 8 AM 02/03/20 23 Active traZODone (DESYREL) 100 mg tablet 07/16/19 24 Active traZODone (DESYREL) 50 mg tablet TAKE 2 TABLETS BY MOUTH AT BEDTIME NEEDED FOR INSOMNIA Active valACYclovir (VALTREX) 1 gram tablet Take 1 tablet (1,000 mg total) by mouth every 8 (eight) hours 02/10/20 23 Active Active Problems Problem Noted Date Diagnosed Date Radiotherapy follow-up examination 09/10/2021 History of radiation therapy 11/25/2017 Hyperlipidemia 09/01/2017 Chronic obstructive pulmonary disease (CMS/HCC) 09/01/2017 Hypothyroidism 09/01/2017 Personal history of tobacco use 09/01/2017 Malignant neoplasm of upper lobe bronchus (CMS/H CC) 09/04/2016 Cancer Staging:Pathologic:Stage IA2(pT1b, pN0, cM0) - Unsigned Immunizations Name Administration Dates Next Due Moderna SARS-CoV-2 Monovalent Vaccination (12+ Y RS) 05/08/2020 Social History Tobacco Use Types Packs/Day Years Used Date Smoking Tobacco: Former Cigarettes Q uit: 2013 Smokeless Tobacco: Never Alcohol Use Standard Drinks/Week Comments Yes 3 (1 standard drink = 0.6 oz pur e alcohol) Personal Safety Answer Date Recorded Getting School Help Needed Not on file 04/27 Comments No Sex and Gender Information Value Date Recorded Sex Assigned at Not on file Legal Sex Female 3: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 BOARD WRITER Gender Identity Not on file Sexual Orientation Not on file Occupation Industry Job Start Date Job End Date retired Not on file Not on file Not on file Last Filed Vital Signs Vital Sign Reading Time Taken Comments Blood Pressure 163/72 09/04/2016 3:20 PM CDT Pulse 76 09/04/2016 2:00 PM CDT Temperature - - Respiratory Rate - - Oxygen Saturation 95% 09/04/2016 2:00 PM CDT Inhaled Oxygen Concentration - - Weight 73 kg (161 lb) 10/07/2023 1:06 PM CDT Height 152.4 cm (5') 10/07/2023 1:06 PM CDT Body Mass Index 31.44 10/07/2023 1:06 PM CDT Plan of Treatment Not on file Insurance MEDICARE COMMERCIAL GENERIC Member Subscriber Plan / Payer ( fective 2015-Present) Name:Esperanza Tsai Member ID:[id number] Relation to Subscriber:Self Name:ESPERANZA TSAI Subscriber ID:[id number] Payer ID:[id number] Group ID:[id number] Type:COMMERCIAL Address: [address] [address] [place] [address] T[employer] MEDICARE COMMERCIAL GENERIC AETNA MEDICARE [employer] Care Teams Administration Dean Relationship Specialty Start Date End Date Les Hart MD PCP - General 06/02/17 Yaneth Davis NP Nurse Practitioner Radiation Oncology 09/01/17 Sukhi Jacobson MD [address] [facility] [address] [place] [address] Radiation Oncologist Radiation Oncology 08/24/19 Echo Combs MD [address] [facility] [address] [place] [address] Sugar Refinery Supervisor Critical Care Med 08/24/19 Skye Andujar NP [address] [facility] [address] [place] [address] Nurse Practitioner Radiation Oncology 10/05/22
--- OUTSIDE RECORDS SUMMARY | 2024-04-27 15:11 | XMS_ITS | Encounter Summary ---
Author Organization [facility] Address [address] [place] [address] Phone Care Team Providers Care Artillery Meteorological Man Name Role Phone Les Hart MD Primary Care Provider [phone] Yaneth Davis NP Unavailable Ignacio Wright MD Unavailable Ingrid Nichols MD Unavailable Sukhi Jacobson MD Unavailable [phone] Echo Combs MD Unavailable [phone] Skye Andujar NP Unavailable Encounter Details Date Type Department Care Team (Late st Contact Info) Description 06/02/2017 Orders Only 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 us Historical Provider MD GUERRA XR PROCEDURES Final R esult documented in this encounter Visit Diagnoses Not on filedocumented in this encounter Care Teams Artillery Meteorological Man Relationship Specialty Start Date End Date Les Hart MD PCP - General 06/02/17 Yaneth Davis NP Nurse Practitioner Radiation Oncology 09/01/17 Ignacio Wright MD [address] [place] [address] Radiation Oncologist Radiation Oncology 09/01/17 Ingrid Nichols MD [address] [place] [address] Referring Physician Pulmonary Disease 09/01/17 08/23/19 Sukhi Jacobson MD [address] [address] Radiation Oncologist Radiation Oncology 08/24/19 Echo Combs MD [address] [place] [address] Wheel Alignment Mechanic Critical Care Med 08/24/19 Skye Andujar NP [address] [facility] [address] [place] [address] Nurse Practitioner Radiation Oncology 10/05/22 documented as of this encounter
--- OUTSIDE RECORDS SUMMARY | 2024-04-27 15:11 | XMS_ITS | Clinical Summary ---
Author Organization [facility] Address [address] [place] [address] Phone Care Team Providers Care Brake Repairer Name Role Phone Les Hart MD Primary Care Provider [phone] Allergies No known active allergies Medications Medication Sig Dispensed Refills Start Date End Date Status VENTOLIN HFA 108 (90 Base) MCG/ACT inhaler INHALE 1 PUFF BY MOUTH EVERY 4 TO 6 HOURS NEEDED FOR SHORTNESS OF BREATH OR WHEEZING 10/06/2019 Active amLODIPine (NORVASC) 5 MG tablet 11/11/2019 Active atorvastatin (LIPITOR) 20 MG tablet 11/13/2019 Active benazepril (LOTENSIN) 10 MG tablet 11/11/2019 Active citalopram (CeleXA) 20 MG tablet 11/11/2019 Active VIRTUSSIN A/C 100-10 MG/5ML liquid TK 5 ML PO Q 4 TO 6 H PRN FOR COUGH 09/04/2019 Active levothyroxine (SYNTHROID, LEVOTHROID) 88 MCG tablet 11/11/2019 Active metoprolol succinate XL (TOPROL-XL) 100 MG 24 hr tablet 11/11/2019 Active aspirin (ST MIRIAN) 81 MG EC tablet Take 81 mg by mouth 1 (one) time each day Active Multiple Vitamins-Minerals (LUTEIN-ZEAXANTHIN PO) Take by mouth Active cholecalciferol (VITAMIN D-3) 50 MCG (1999) capsule Take 2,000 Units by mouth 1 (one) time each day Active budesonide (PULMICORT) 0.25 MG/2ML nebulizer solution Take 0.25 mg by nebulization 2 (two) times a day Active arformoterol (BROVANA) 15 MCG/2ML nebulizer solution Take 15 mcg by nebulization 2 (two) times a day Active fluticasone-salmete rol (ADVAIR DISKUS) 250-50 MCG/DOSE diskus inhaler 2 times daily. Active ipratropium-albuter ol (COMBIVENT RESPIMAT) 20-100 MCG/ACT inhaler Inhale 1 puff 2 times daily Active Active Problems Problem Noted Date Diagnosed Date History of radiation therapy 11/25/2017 Chronic obstructive pulmonary disease 09/01/2017 Hyperlipidemia 09/01/2017 Hypothyroidism 09/01/2017 Personal history of tobacco use 09/01/2017 Malignant neoplasm of upper lobe bronchus 2016 Immunizations Name Administration Dates Next Due Moderna Sars-cov-2 Vaccination 05/08/2020 Family History Medical History Relation Comments Coronary artery disease Father Heart disease Father Heart failure Mother Hypertension Mother Relation Status Comments Father Mother Social History Tobacco Use Types Packs/Day Years Used Date Smoking Tobacco: Former Cigarettes 1 50 1 964 - 2013 Smokeless Tobacco: Never Alcohol Use Standard Drinks/Week Comments Yes 0 (1 standard drink = 0.6 oz pur e alcohol) Sex and Gender Information Value Date Recorded Sex Assigned at Not on file Gender Identity Not on file Sexual Orientation Not on file Last Filed Vital Signs Vital Sign Reading Time Taken Comments Blood Pressure 134/74 06/05/2020 1:15 PM CDT Pulse - - Temperature 36.1 C (97 F) 06/05/2020 1:15 PM CDT Respiratory Rate 18 06/05/2020 1:15 PM CDT Oxygen Saturation - - Inhaled Oxygen Concentration - - Weight 80.7 kg (178 lb) 06/05/2020 1:15 PM CDT Height 157.5 cm (5' 2 ) 06/05/2020 1:15 PM CDT Body Mass Index 32.56 06/05/2020 1:15 PM CDT Plan of Treatment Health Maintenance Due Date Last Done Comments Pneumococcal PPSV23/PCV13 65 + Years / Low and Medium Risk (1 of 4 - PCV) 2010 COVID-19 Vaccine (2 - 2022- season) 2023 Influenza Vaccine (#1) 2023 Care Teams Brake Repairer Relationship Specialty Start Date End Date Les Hart MD [address] [place] [address] PCP - General Family Medicine 11/23/19
--- OUTSIDE RECORDS SUMMARY | 2024-04-27 15:11 | XMS_ITS ---
Author Organization [facility] Address [address] [place] [address] Care Team Providers Care Cathode Ray Tube Salvage Processor Name Role Phone Les Hart MD Primary Care Provider Yaneth Davis NP Unavailable Sukhi Jacobson MD Unavailable Echo Combs MD Unavailable [phone] Skye Andujar NP Unavailable Active Problems Problem Noted Date Diagnosed Date Radiotherapy follow-up examination 09/10/2021 History of radiation therapy 11/25/2017 Hyperlipidemia 09/01/2017 Chronic obstructive pulmonary disease ([facility]/HCC) 09/01/2017 Hypothyroidism 09/01/2017 Personal history of tobacco use 09/01/2017 Malignant neoplasm of upper lobe bronchus ([facility]/H CC) 09/04/2016 Cancer Staging:Pathologic:Stage IA2(pT1b, pN0, cM0) - Unsigned Current Oncology Plans No current plan information found. Past Plans No past plan information found. Radiation Treatments * No radiation treatments are documented for this patient in [facility]. Treatments may have been administered in another system. Lifetime Dose Tracking * Chemical Lifetime Dose Automatic Entry Manual Entr y DLP 2,884 mGycm 2,884 mGycm 0 mGycm
--- OUTSIDE RECORDS SUMMARY | 2024-04-27 15:11 | XMS_ITS | Clinical Summary ---
Author Organization [facility] Address [address] [place] [address] Care Team Providers Care Shredding Floor Equipment Operator Name Role Phone Les Hart MD Primary Care Provider Yaneth Davis NP Unavailable Sukhi Jacobson MD Unavailable Echo Combs MD Unavailable Skye Andujar NP Unavailable Allergies No known active allergies Medications fluticasone-salme [...] SARS-CoV-2 Monovalent Vaccination (12+ Y RS) 05/08/2020 Surgical History Surgery Date Site/Laterality Comments SECTION US GUIDED LUNG BIOPSY TUBAL LIGATION Medical History Medical History Date Comments Hyperlipemia Hypothyroidism COPD (chronic obstructive pulmonary disease) (HC C) H/O degenerative disc disease Malignant neoplasm of bronchus of left upper lob e (HCC) 09/04/2016 Personal history of radiation therapy 11/25/2017 Family History Medical History Relation Name Comments Lung cancer Maternal Grandmother Liver cancer Other Family history of liver cancer - Relation: Grandmother (Added by TW Conv) Relation Name Status Comments Maternal Grandmother Other Social History Tobacco Use Types Packs/Day Years Used Date Smoking Tobacco: Former Cigarettes Q uit: 2014 Smokeless Tobacco: Never Alcohol Use Standard Drinks/Week Comments Yes 3 (1 standard drink = 0.6 oz pur e alcohol) Personal Safety Answer Date Recorded Getting School Help Needed Not on file 04/27 Comments No Sex and Gender Information Value Date Recorded Sex Assigned at Not on file Legal 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 Gender Identity Not on file Sexual Orientation Not on file Occupation Industry Job Start Date Job End Date retired Not on file Not on file Not on file Obstetrics History Last Filed Vital Signs Vital Sign Reading [...] 10/07/2023 1:06 PM CDT Plan of Treatment Health Maintenance Due Date Last Done Comments Depression Screening 1945 Fall Risk Assessment 1945 Hepatitis C Screening 1945 Osteoporosis Screening-Bone Density Scan 1945 Hepatitis B Screening 11/18/1963 Well Visit 65+ 2010 Pneumococcal vaccine 65+ (2 of 2 - PPSV23 or PCV20) 03/03/2018 01/06/2018 Covid-19 Vaccine (5 - 2023-2 5 season) 2023 02/25/2021, 06/06/2020, 05/16/2020, Additional history exists Influenza Vaccine (#1) 2023 , 01/26/2020, 01/21/2019, Additional history exists DTaP/Tdap/Td Vaccine (2 - Td or Tdap) 04/11/2025 04/11/2015 Zoster Vaccine Completed 04/18/2019, 01/21/2019 Insurance MEDICARE COMMERCIAL GENERIC AETNA MEDICARE COMMERCIAL GENERIC [facility] MEDICARE AETNA Care Teams Shredding Floor Equipment Operator Relationship Specialty Start Date End Date Les Hart MD PCP - General 06/02/17 Yaneth Davis NP Nurse Practitioner Radiation Oncology 09/01/17 Sukhi Jacobson MD [address] [facility] [address] [place] [address] Radiation Oncologist Radiation Oncology 08/24/19 Echo Combs MD [address] [place] [address] Associate Marketing Manager Critical Care Med 08/24/19 Skye Andujar NP [address] [facility] [address] [place] [address] Nurse Practitioner Radiation Oncology 10/05/22
== END 2024-04-27 15:09 | disposition home or self-care (01) ==
LOC: ANHIMG 15:08
PROVIDERS: Visit Provider Nurse Practitioner Family
DX: Z12.31 Encounter for screening mammogram for malignant neoplasm of breast (principal)
CPT/HCPCS: 77063; 77067

== ENCOUNTER 2024-06-07 09:56 | Outpatient (CLI) | payer MEDICARE, SELFPAY ==
--- NOTE | ~2024-06-07 | US_ITS ---
US abdomen limited 06/07/2024 10:19 Indication: Left upper quadrant abdominal swelling with mass Procedure: High-resolution Limited anterior abdominal wall ultrasound Comparison: No prior studies for comparison. Findings: Normal heterogeneous soft tissues without discrete mass or fluid collection. Impression: 1: Normal abdominal wall soft tissue ultrasound. No mass. Reviewed, dictated and finalized at location A. Impression: 1: Normal abdominal wall soft tissue ultrasound. No mass.
== END 2024-06-07 09:57 | disposition home or self-care (01) ==
LOC: MICIMG 09:56
PROVIDERS: PCP Family Medicine; Visit Provider Nurse Practitioner Family
DX: R19.02 Left upper quadrant abdominal swelling, mass and lump (principal)
CPT/HCPCS: 76705

== ENCOUNTER 2024-06-20 14:28 | Outpatient (CLI) | payer MEDICARE, SELFPAY ==
--- NOTE | ~2024-06-20 | CT_ITS ---
CT of the Abdomen: Indication: Left upper quadrant mass Technique: 2.5 mm axial scans were obtained through the abdomen following intravenous administration of 100 cc of Omnipaque 350. Dose reduction technique was used on this scan by utilizing automated ex posure control and iterative reconstruction technique. The dose-length product (DLP) was 205.99 mGy-c m. Findings: Scans through the lung bases demonstrate emphysematous change. The liver, spleen, pancreas, gallbladder, adrenals and kidneys are within normal limits. There are ex tensive atherosclerotic calcifications of the aorta. No lymphadenopathy. Visualized bowel loops are unremarkable. No ascites. There is diffuse degenerative spondylosis of the visualized spine. Impression: No abnormal soft tissue mass seen. Dizziness changes along bases. Reviewed, dictated and finalized at location . Impression: No abnormal soft tissue mass seen. Dizziness changes along bases.
[2024-06-20 14:56] LABS: Estimated Glomerular Filt Rate 54
--- OUTSIDE RECORDS SUMMARY | 2024-06-20 16:05 | XMS_ITS ---
Author Organization [facility] Address [address] [place] [address] Care Team Providers Care National Account Executive Name Role Phone Les Hart MD Primary Care Provider [phone] Yaneth Davis NP Unavailable Sukhi Jacobson MD Unavailable Echo Combs MD Unavailable Skye Andujar NP Unavailable [phone] Active Problems Problem Noted Date Diagnosed Date Radiotherapy follow-up examination 09/10/2021 History of radiation therapy 11/25/2017 Hyperlipidemia 09/01/2017 Chronic obstructive pulmonary disease ([facility]/HCC) 09/01/2017 Hypothyroidism 09/01/2017 Personal history of tobacco use 09/01/2017 Malignant neoplasm of upper lobe bronchus (CMS/H CC) 09/04/2016 Cancer Staging:Pathologic:Stage IA2(pT1b, pN0, cM0) - Unsigned Current Treatment and Therapy Plans No current plan information found. Past Treatment and Therapy Plans No past plan information found. Lifetime Dose Tracking * Chemical Lifetime Dose Automatic Entry Manual Entr y DLP 2,884 mGycm 2,884 mGycm 0 mGycm
--- OUTSIDE RECORDS SUMMARY | 2024-06-20 16:05 | XMS_ITS | Clinical Summary ---
Author Organization [facility] Address [address] [place] [address] Phone Care Team Providers Care Shell Fisherman Name Role Phone Les Hart MD Primary Care Provider [phone] Allergies No known active allergies Medications Medication [...] - PCV) 2010 COVID-19 Vaccine (2 - season) 2023 Influenza Vaccine (Season Ended) 2024 Care Teams Shell Fisherman Relationship Specialty Start Date End Date Les Hart MD [address] [address] PCP - General Family Medicine 11/23/19
--- OUTSIDE RECORDS SUMMARY | 2024-06-20 16:06 | XMS_ITS | Referral Summary ---
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 Gender Identity Not on file Sexual Orientation [...] Not on file Insurance MEDICARE COMMERCIAL GENERIC TNA MEDICARE COMMERCIAL GENERIC AETNA MEDICARE AETNA 24/7 Care Teams Volunteer Services Manager Relationship Specialty Start Date End Date Les Hart MD PCP - General 06/02/17 Yaneth Davis NP Nurse Practitioner Radiation Oncology 09/01/17 Sukhi Jacobson MD [address] [facility] [address] [place] [address] Radiation Oncologist Radiation Oncology 08/24/19 Echo Combs MD [address] [facility] [address] [place] [address] Electrical Helper Critical Care Med 08/24/19 Skye Andujar NP [address] [facility] [address] [place] [address] Nurse Practitioner Radiation Oncology 10/05/22
--- OUTSIDE RECORDS SUMMARY | 2024-06-20 16:06 | XMS_ITS | Clinical Summary ---
Author Organization [facility] Address [address] [place] [address] Care Team Providers Care Police Inspector Name Role Phone Les Hart MD Primary Care Provider Yaneth Davis NP Unavailable [phone] Sukhi Jacobson MD Unavailable Echo Combs MD Unavailable [phone] Skye Andujar NP Unavailable Allergies No known [...] on file Legal Sex Female 3:17 AM SECTION BEAMER Gender Identity Not on file Sexual Orientation [...] Pneumococcal vaccine 65+ (2 of 2 - PPSV23) 03/03/2018 01/06/2018 Covid-19 Vaccine (5 - 2023-2 5 season) 2023 02/25/2021, 06/06/2020, 05/16/2020, Additional history exists Influenza Vaccine (Season Ended) 2024 12/19/2020, 01/26/2020, 01/21/2019, Additional history exists DTaP/Tdap/Td Vaccine (2 - Td or Tdap) 04/11/2025 04/11/2015 Zoster Vaccine Completed 04/18/2019, 01/21/2019 Insurance MEDICARE COMMERCIAL GENERIC AETNA MEDICARE COMMERCIAL GENERIC [facility] [place] [address] MEDICARE AETNA Care Teams Police Inspector Relationship Specialty Start Date End Date Les Hart MD PCP - General 06/02/17 Yaneth Davis NP Nurse Practitioner Radiation Oncology 09/01/17 Sukhi Jacobson MD [address] [facility] [address] [facility] [address] [place] [address] Radiation Oncologist Radiation Oncology 08/24/19 Echo Combs MD [address] [facility] [address] [place], [place] [id number] Water Well Driller Critical Care Med 08/24/19 Skye Andujar NP [address] [facility] [address] [place] [address] Nurse Practitioner Radiation Oncology 10/05/22
--- OUTSIDE RECORDS SUMMARY | 2024-06-20 16:06 | XMS_ITS | Encounter Summary ---
Author Organization [facility] Address [address] [place] [address] Phone Care Team Providers Care Brick And Tile Making Machine Operator Name Role Phone Les Hart MD Primary Care Provider Yaneth Davis NP Unavailable Ignacio Wright MD Unavailable [phone] Ingrid Nichols MD Unavailable Sukhi Jacobson MD Unavailable Echo Combs MD Unavailable [phone] Skye Andujar NP Unavailable [phone] Encounter Details Date Type Department Care Team (Late st Contact Info) Description 06/02/2017 Orders Only [facility] ProviderTenzin MD [address] [place] [address] Social History Tobacco Use Types Packs/Day Years Used Date Smoking Tobacco: Former Comments Unknown Sex and Gender Information Value Date Recorded Sex Assigned at Not on file Legal Sex Female 3: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 ATTACHER COVERSTITCH Gender Identity Not on file Sexual Orientation [...] on filedocumented in this encounter Care Teams Brick And Tile Making Machine Operator Relationship Specialty Start Date End Date Les Hart MD PCP - General 06/02/17 Yaneth Davis NP Nurse Practitioner Radiation Oncology 09/01/17 Ignacio Wright MD [address] [place] [address] Radiation Oncologist Radiation Oncology 09/01/17 Ingrid Nichols MD [address] [place] [address] Referring Physician Pulmonary Disease 09/01/17 08/23/19 Sukhi Jacobson MD [address] [address] Radiation Oncologist Radiation Oncology 08/24/19 Echo Combs MD [address] [place] [address] Parking Supervisor Critical Care Med 08/24/19 Skye Andujar NP [address] [facility] [address] [place] [address] Nurse Practitioner Radiation Oncology 10/05/22 documented as of this encounter
--- OUTSIDE RECORDS SUMMARY | 2024-06-20 16:06 | XMS_ITS | Clinical Summary ---
Author Organization [facility] Address [facility] [place] [address] Care Team Providers Care Remnants Cutter Name Role Phone Les Hart MD Primary Care Provider [phone] Allergies No known active allergies Medications VENTOLIN [...] mouth every 8 (eight) hours. 3 Active azelastine (ASTELIN) 0.1 % nasal spray 4 Active cyclobenzaprine (FLEXERIL) 10 MG tablet Take 1 tablet (10 mg total) by mouth 3 (three) times daily as needed for Muscle Spasms. 4 Active Multiple Vitamin (MULTI-VITAMIN) tablet Take by mouth daily. Active tiotropium (SPIRIVA RESPIMAT) 2.5 MCG/ACT inhaler (SPIRIVA RESPIMAT) 2 puffs daily. Activ e Active Problems Problem Noted Date Diagnosed Date Intermittent claudication 11/24/2022 History of radiation therapy 11/25/2017 Chronic obstructive pulmonary disease ([facility] H HS/[facility]) 09/01/2017 Hyperlipidemia 09/01/2017 Hypothyroidism 09/01/2017 Personal history of tobacco use 09/01/2017 Malignant neoplasm of bronch us of upper lobe ([facility] HHS/HCC) 09/04/2016 Encounters Date Type Department Care Team Description 05/18/2024 1:15 PM BOOK JACKET COVER MACHINE OPERATOR [facility] [address] Rich Guy MD Follow Up 05/18/2024 Travel from Last 3 Months Immunizations Name Administration Dates Next Due Influenza [...] Information Value Date Recorded Sex Assigned at Female 05/18/2024 1:13 PM BOOK JACKET COVER MACHINE OPERATOR Legal Sex Female 6:49 PM CDT Gender Identity Not on file Sexual Orientation Not on file Last Filed Vital Signs Vital Sign Reading Time Taken Comments Blood Pressure 140/72 05/20/2023 1:11 PM BOOK JACKET COVER MACHINE OPERATOR Pulse 72 05/20/2023 1:11 PM BOOK JACKET COVER MACHINE OPERATOR Temperature 36.9 C (98.5 F) 08/20/2018 5:12 PM CDT Respiratory Rate 18 08/20/2018 5:12 PM CDT Oxygen Saturation 93% 08/20/2018 5:12 PM CDT Inhaled Oxygen Concentration - - Weight 67.7 kg (149 lb 3.2 oz) 05/18/2024 1:51 P M BOOK JACKET COVER MACHINE OPERATOR Height 152.4 cm (5') 05/18/2024 1:51 PM BOOK JACKET COVER MACHINE OPERATOR Body Mass Index 29.14 05/18/2024 1:51 PM BOOK JACKET COVER MACHINE OPERATOR Plan of Treatment Upcoming Encounters Date Type Department Care Team (Late st Contact Info) Description 05/17/2025 1:00 PM BOOK JACKET COVER MACHINE OPERATOR Office Visit [facility], [address] [address] Rich Guy MD [address] [address] Health Maintenance Due Date Last Done Comments Hepatitis C 11/18/1963 Annual Medicare Wellness Visit 2010 Dexa Scan (General) 2010 Pneumococcal Vaccine: 65+ Years (2 of 2 - PPSV23 or PCV20) 03/03/2018 01/06/2018 RSV Immunization or 60+ Years (1 - 1-dose 75+ series) 2020 COVID-19 Vaccine ( season) 2023 02/25/2021, 06/06/2020, 05/16/2020, Additional history exists DTaP, Tdap and Td [...] age to complete this topic [facility] Care Teams Remnants Cutter Relationship Specialty Start Date End Date Les Hart MD [address] [address] PCP - General FAMILY PRACTICE 08/20/18
== END 2024-06-20 14:29 | disposition home or self-care (01) ==
PROVIDERS: PCP Family Medicine; Visit Provider Nurse Practitioner Family
DX: R19.02 Left upper quadrant abdominal swelling, mass and lump (principal)
CPT/HCPCS: 74160; Q9967

== ENCOUNTER 2024-11-29 14:16 | Outpatient (CLI) | payer MEDICARE, SELFPAY ==
--- NOTE | 2024-11-29 14:24 | ECHO_ITS ---
Patient Info Name: Su Bustillos Age: 79 years : 1945 Gender: Female Ht: 60 in Wt: 138 lbs BSA: 1.65 m2 HR: 72 bpm BP: 179 / 78 mmHg Technical Quality: Good Exam Date: 11/29/2024 2:36 PM Patient Status: O Admit Date: 11/29/2024 Exam Type: CA echo doppler color flow Complete two-dimensional, color flow and Doppler transthoracic echocardiogram is performed. Lacemaker: Serena Ramos Attending Provider: Randy Baker DO Summary 1. Complete two-dimensional, color flow and Doppler transthoracic echocardiogram is performed. 2. Left ventricular chamber dimension is normal. 3. Left ventricular systolic function is normal, estimated at 60-65. 4. The left ventricular diastolic function is abnormal. 5. E/e' 16 is elevated. 6. Left atrial chamber dimension is moderately enlarged. 7. The aortic valve is not well visualized. Cannot determine number of aortic valve leaflets. 8. There is severe aortic valve sclerosis. 9. There is moderate aortic valve stenosis based on a peak velocity of 211 cm/s, mean gradient of 9 mmHg, and aortic valve area of 1.4 cm2. 10. The mitral valve has mildly calcified leaflets and a moderately calcified annulus. 11. There is mild to moderate mitral valve regurgitation. 12. There is mild tricuspid valve regurgitation. 13. No pulmonary hypertension, estimated pulmonary arterial systolic pressure is 38 mmHg. 14. There is trace pulmonic regurgitation. Left Ventricle E/e' 16 is elevated. Left ventricular chamber dimension is normal. Left ventricular systolic function is normal, estimated at 60-65. The left ventricular diastolic function is abnormal. Right Ventricle Right ventricular chamber dimension is normal. Right ventricular systolic function is normal and with normal TAPSE 1.8 cm. Left Atria Left atrial chamber dimension is moderately enlarged. Right Atria Right atrial chamber dimension is normal. Aortic Valve The aortic valve is not well visualized. Cannot determine number of aortic valve leaflets. There is severe aortic valve sclerosis. There is moderate aortic valve stenosis based on a peak velocity of 211 cm/s, mean gradient of 9 mmHg, and aortic valve area of 1.4 cm2. There is no aortic valve regurgitation. Pulmonic Valve There is trace pulmonic regurgitation. Mitral Valve The mitral valve has mildly calcified leaflets and a moderately calcified annulus. There is no mitral valve stenosis. There is mild to moderate mitral valve regurgitation. Tricuspid Valve There is mild tricuspid valve regurgitation. No pulmonary hypertension, estimated pulmonary arterial systolic pressure is 38 mmHg. Pericardium/Pleural There is no pericardial effusion. Inferior Vena Cava Normal inferior vena cava with >50% collapse upon inspiration consistent with normal right atrial pressure, 5 mmHg. Aorta The aortic root size at the sinus of Valsalva is normal. Left Ventricular Outflow Tract Name Value Normal LVOT 2D LVOT Diameter 2.0 cm LVOT Doppler LVOT Peak Velocity 88 cm/s LVOT Peak Gradient 3 mmHg LVOT Mean Gradient 2 mmHg LVOT VTI 23 cm LVOT VTI/AV VTI Ratio 0.5 LVOT Stroke Volume 69 ml LVOT CO 11.3 l/min LVOT CI 6.9 l/min/m2 Pulmonic Valve Name Value Normal PV Doppler PV Peak Velocity 67 cm/s PV Peak Gradient 2 mmHg Mitral Valve Name Value Normal MV Diastolic Function MV E Peak Velocity 112 cm/s MV A Peak Velocity 95 cm/s MV E/A 1.2 MV Decel Time (PW) 225 ms MV Annular TDI MV E/e' (Septal) 17.5 MV E/e' (Lateral) 15.6 MV E/e' (Average) 16.6 Tricuspid Valve Name Value Normal TV Regurgitation Doppler TR Peak Velocity 286 cm/s TR Peak Gradient 33 mmHg Estimated PAP/RSVP RA Pressure 5 mmHg <=5 PA Systolic Pressure 38 mmHg <36 RV Systolic Pressure 38 mmHg <36 TV Annular TDI TV Lateral Lesly s' Velocity 11.1 cm/s >=9.5 Aorta Name Value Normal Ascending Aorta Ao Root Diameter (MM) 3.2 cm Ao Root Diam Index (MM) 1.9 cm/m2 Aortic Valve Name Value Normal AV Doppler AV Peak Velocity 211 cm/s AV Peak Gradient 18 mmHg AV Mean Gradient 9 mmHg AV VTI 50 cm AV Area (Cont Eq VTI) 1.4 cm2 >=3.0 AV Area (Cont Eq Deven) 1.3 cm2 AV DI (Deven) 0.42 AV Regurgitation 2D LVOT Area 3.1 cm2 Ventricles Name Value Normal LV Dimensions 2D/MM IVS Diastolic Thickness (2D) 1.1 cm 0.6-1.0 LVID Diastole (2D) 4.1 cm 3.8-5.2 LVIW Diastolic Thickness (2D) 1.0 cm 0.6-0.9 LVID Systole (2D) 3.0 cm 2.2-3.5 LVOT Diameter 2.0 cm LV Mass (2D Cubed) 143.99 g 67.00-162.00 LV Mass Index (2D Cubed) 87 g/m2 43-95 Relative Wall Thickness (2D) 0.49 <=0.42 LV Fractional Shortening/Ejection Fraction 2D/MM LV Fractional Shortening (2D) 26 % 27-45 LV EF (2D Teichholz) 51 % LV Diastolic Volume (4C MOD) 96 ml LV EF (4C MOD) 64 % LV Diastolic Volume (2C MOD) 106 ml LV EF (2C MOD) 72 % LV Diastolic Volume (BP MOD) 103 ml 46-106 LV Diastolic Volume Index (BP MOD) 63 ml/m2 29-61 LV Systolic Volume (BP MOD) 32 ml 14-42 LV Systolic Volume Index (BP MOD) 19 ml/m2 8-24 LV EF (BP MOD) 69 % 54-74 LV Diastolic Length (4C) 8.0 cm LV Systolic Length (4C) 6.3 cm LV Stroke Volume (4C MOD) 62 ml Atria Name Value Normal LA Dimensions LA Dimension (MM) 4.0 cm 2.7-3.8 LA Volume (4C A-L) 51 ml LA Volume (BP A-L) 55 ml RA Dimensions RA Area (4C) 14.6 cm2 <=18.0 Report Signatures
--- OUTSIDE RECORDS SUMMARY | 2024-11-29 14:58 | XMS_ITS | Clinical Summary ---
Author Organization [facility] Address [address] [place] [address] Care Team Providers Care Collar Separator Name Role Phone Les Hart MD Primary Care Provider Yaneth Davis NP Unavailable [phone] Sukhi Jacobson MD Unavailable Echo Combs MD [...] every 8 (eight) hours 02/10/20 23 Active cyclobenzaprine (FLEXERIL) 10 mg tablet Take 1 tablet (10 mg total) by mouth 3 (three) times a day as needed 10/23/19 24 Active Active Problems Problem Noted Date Diagnosed Date Intermittent claudication 11/24/2022 Radiotherapy follow-up examination 09/10/2021 History of radiation therapy 11/25/2017 Hyperlipidemia 09/01/2017 Chronic obstructive pulmonary disease (CMS/HCC) 09/01/2017 Hypothyroidism 09/01/2017 Personal history of tobacco use 09/01/2017 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(pT1b, pN0, cM0) - Unsigned Encounters Date Type Department Care Team Description 10/17/2024 2:40 PM CDT Office Visit [facility] Radiation Oncology [address] [place] [address] [place] [address] Skye Andujar NP Malignant neoplasm of bronchus of upper lobe, unspecified laterality (HCC) [C34.10] (Primary Dx); Radiotherapy follow-up examination [Z09] 10/17/2024 12:52 PM CDT - 10/17/2024 11:59 PM CDT Hospital Encounter [facility] [address] [place] [address] Malignant neoplasm of bronchus of upper lobe, unspecified laterality (HCC); Radiotherapy follow-up examination Discharge Disposition: Discharge to home or self care from Last 3 Months Immunizations Immunization Administration Dates Next Due Moderna SARS-CoV-2 Monovalent Vaccination (12+ Y RS) 05/08/2020 Surgical History Surgery Date Site/Laterality Comments SECTION US GUIDED LUNG BIOPSY TUBAL LIGATION Medical History Medical History Date Comments Hyperlipemia Hypothyroidism COPD (chronic obstructive pulmonary disease) H/O degenerative disc disease Malignant neoplasm of [...] drink = 0.6 oz pur e alcohol) Comments No Sex and Gender Information Value Date Recorded Sex Assigned at Not on file 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 Gender Identity Not on file Sexual [...] CDT Inhaled Oxygen Concentration - - Weight 66.3 kg (146 lb 1.6 oz) 10/17/2024 1:25 P M CDT Height 152.4 cm (5') 10/17/2024 1:25 PM CDT Body Mass Index 28.53 10/17/2024 1:25 PM CDT Plan of Treatment Health Maintenance Due Date Last Done Comments Depression Screening 1945 Fall Risk Assessment 1945 Hepatitis C Screening 1945 Osteoporosis Screening-Bone Density Scan 1945 Hepatitis B Screening 11/18/1963 Well Visit 65+ 2010 Pneumococcal vaccine 65+ (2 of 2 - PPSV23, PCV20, or PCV21) 03/03/2018 01/06/2018 Covid-19 Vaccine (5 - 2024-2 6 season) 2024 02/25/2021, 06/06/2020, 05/16/2020, Additional history exists Influenza Vaccine (#1) 2024 , 01/26/2020, 01/21/2019, Additional history exists DTaP/Tdap/Td Vaccine (2 - Td or Tdap) 04/11/2025 04/11/2015 Zoster Vaccine Completed 04/18/2019, 01/21/2019 Procedures Procedure Name Priority Date/Time Associated Diagnosis Comments CT CHEST WO CONTRAST Routine 10/17/2024 1:08 PM CDT Malignant neoplasm of bronchus of upper lobe, unspecified laterality (HCC) Radiotherapy follow-up examination from Last 3 Months Results * CT Chest WO Contrast (10/17/2024 1:08 PM CDT) Anatomical Region Laterality Modality Body N/A Computed Tomogra phy 10/17/2024 1:16 PM CDT Impressions 10/17/2024 1:16 PM CDT Left upper lobe postradiation change similar to prior study. No new suspicious findings. Dictated by: Oliver Camp MD The radiology attending physician has personally reviewed this study, and had reviewed and/or edited this written report and agrees with it. Electronically signed by: Sang Tracey M.D. 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 COMPARISON: 10/07/2023 FINDINGS: Thyroid is diminutive. There is no supraclavicular, axillary, or mediastinal lymphadenopathy. Heart is normal in size, there is no pericardial effusion. Multivessel coronary artery and aortic valve calcification. Thoracic aorta and pulmonary artery normal in caliber. The esophagus is nondilated. Imaged portions the upper abdomen demonstrate no acute abnormality with unchanged left adrenal thickening. There are bilateral breast calcifications. There is redemonstrated left upper lobe postradiation change, similar in appearance to prior study with unchanged osseous sclerosis and expansion of an adjacent rib. There is pulmonary emphysema. No pleural effusion or pneumothorax. Calcified pulmonary granulomas are present. No suspicious nodules. No suspicious osseous lesion. 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 COMPARISON: 10/07/2023 FINDINGS: Thyroid is diminutive. There is no supraclavicular, axillary, or mediastinal lymphadenopathy. Heart is normal in size, there is no pericardial effusion. Multivessel coronary artery and aortic valve calcification. Thoracic aorta and pulmonary artery normal in caliber. The esophagus is nondilated. Imaged portions the upper abdomen demonstrate no acute abnormality with unchanged left adrenal thickening. There are bilateral breast calcifications. There is redemonstrated left upper lobe postradiation change, similar in appearance to prior study with unchanged osseous sclerosis and expansion of an adjacent rib. There is pulmonary emphysema. No pleural effusion or pneumothorax. Calcified pulmonary granulomas are present. No suspicious nodules. No suspicious osseous lesion. IMPRESSION: Left upper lobe postradiation change similar to prior study. No new suspicious findings. Dictated by: Oliver Camp MD The radiology attending physician has personally reviewed this study, and had reviewed and/or edited this written report and agrees with it. Electronically signed by: Sang Tracey M.D. Skye Andujar NP IMG CT PROCEDURES Final Result from Last 3 Months Insurance MEDICARE COMMERCIAL GENERIC [employer] MEDICARE COMMERCIAL [facility] MEDICARE Care Teams Collar Separator Relationship Specialty Start Date End Date Les Hart MD PCP - General 06/02/17 Yaneth Davis NP Nurse Practitioner Radiation Oncology 09/01/17 Sukhi Jacobson MD [address] [facility] [address] [place] [address] Radiation Oncologist Radiation Oncology 08/24/19 Echo Combs MD [address] [facility] [address] [place] [address] Chief Lock Tender Operator Critical Care Med 08/24/19 Skye Andujar, EAMON [address] [facility] [address] [place] [address] Nurse Practitioner Radiation Oncology 10/05/22
--- OUTSIDE RECORDS SUMMARY | 2024-11-29 14:58 | XMS_ITS | Clinical Summary ---
Author Organization [facility] Address [address] [place] [phone] Phone Care Team Providers Care Cnc Technician Name Role Phone Les Hart MD Primary Care Provider [phone] Allergies No known active allergies Medications VENTOLIN HFA 108 (90 Base) MCG/ACT inhaler INHALE 1 PUFF BY MOUTH EVERY 4 TO 6 HOURS NEEDED FOR SHORTNESS OF BREATH OR WHEEZING 0 Active amLODIPine (NORVASC) 5 MG tablet 0 Active atorvastatin (LIPITOR) 20 MG tablet 0 Active benazepril (LOTENSIN) 10 MG tablet 0 Active citalopram (CeleXA) 20 MG tablet 0 Active VIRTUSSIN A/C 100-10 MG/5ML liquid TK 5 ML PO Q 4 TO 6 H PRN FOR COUGH 0 Active levothyroxine (SYNTHROID, LEVOTHROID) 88 MCG tablet 0 Active metoprolol succinate XL (TOPROL-XL) 100 MG 24 hr tablet 0 Active aspirin (ST MIRIAN) 81 MG EC tablet Take 81 mg by mouth 1 (one) time each day Active Multiple Vitamins-Minera ls (LUTEIN-ZEAXANT HIN PO) Take by mouth Active cholecalciferol (VITAMIN D-3) 50 MCG (1999) capsule Take 2,000 Units by mouth 1 (one) time each day Active budesonide (PULMICORT) 0.25 MG/2ML nebulizer solution Take 0.25 mg by nebulization 2 (two) times a day Active arformoterol (BROVANA) 15 MCG/2ML nebulizer solution Take 15 mcg by nebulization 2 (two) times a day Active fluticasone-leonor meterol (ADVAIR DISKUS) 250-50 MCG/DOSE diskus inhaler 2 times daily. Activ e ipratropium-alb uterol (COMBIVENT RESPIMAT) 20-100 MCG/ACT inhaler Inhale 1 puff 2 times daily Active Active Problems Problem Noted Date Diagnosed Date History of radiation therapy 11/25/2017 Chronic obstructive pulmonary disease 09/01/2017 Hyperlipidemia 09/01/2017 Hypothyroidism 09/01/2017 Personal history of tobacco use 09/01/2017 Malignant neoplasm of upper lobe bronchus 2016 Immunizations Immunization Administration Dates Next Due Moderna Sars-cov-2 Vaccination [...] = 0.6 oz pur e alcohol) Comments Unknown Sex and Gender Information Value Date Recorded Sex Assigned at Not on file Legal Sex Female 12:13 PM MDT Gender Identity Not on file Sexual Orientation [...] 1:15 PM CDT Height 157.5 cm (5' 2) 06/05/2020 1:15 PM CDT Body Mass Index 32.56 06/05/2020 1:15 PM CDT Plan of Treatment Health Maintenance Due Date Last Done Comments Pneumococcal PPSV23/PCV13 65 + Years / Low and Medium Risk (1 of 2 - PCV) 11/18/1995 COVID-19 Vaccine (2 - 2024- season) 2024 Influenza Vaccine (#1) 2024 Insurance MEDICARE T Care Teams Cnc Technician Relationship Specialty Start Date End Date Les Hart MD [address] [address] PCP - General Family Medicine 11/23/19
--- OUTSIDE RECORDS SUMMARY | 2024-11-29 14:58 | XMS_ITS | Encounter Summary ---
Author Organization [facility] Address [address] [facility] [address] [place] [address] Phone Care Team Providers Care Geophysical Computer Name Role Phone Les Hart MD Primary Care Provider Yaneth Davis DISTRICT [facility] JUDGE Unavailable Ignacio Wright MD Unavailable Ingrid Nichols MD Unavailable [phone] Sukhi Jacobson MD Unavailable Echo Combs MD Unavailable [phone] Skye Andujar NP Unavailable Encounter Details Date Type Department Care Team (Late st Contact Info) Description 06/02/2017 Orders Only [facility] Provider, MD [facility] [place] [address] Social History Tobacco Use Types Packs/Day Years Used Date Smoking Tobacco: Former Comments Unknown Sex and Gender Information Value Date Recorded Sex Assigned at Not on file 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 Gender Identity Not on file Sexual Orientation [...] on filedocumented in this encounter Care Teams Geophysical Computer Relationship Specialty Start Date End Date Les Hart MD PCP - General 06/02/17 Yaneth Davis, EAMON Nurse Practitioner Radiation Oncology 09/01/17 Ignacio Wright MD [address] [place] [address] Radiation Oncologist Radiation Oncology 09/01/17 Ingrid Nichols MD [address] [address] Referring Physician Pulmonary Disease 09/01/17 08/23/19 Sukhi Jacobson MD [address] [address] Radiation Oncologist Radiation Oncology 08/24/19 Echo Combs MD [address] [address] Assistant Buyer Critical Care Med 08/24/19 Skye Andujar, EAMON [address] [facility] [address] [place] [address] Nurse Practitioner Radiation Oncology 10/05/22 documented as of this encounter
--- OUTSIDE RECORDS SUMMARY | 2024-11-29 14:58 | XMS_ITS ---
Author Organization [facility] Address [address] [place] [address] Care Team Providers Care Gasoline Engine Assembler Name Role Phone Les Hart MD Primary Care Provider [phone] Yaneth Davis NP Unavailable Sukhi Jaocbson MD Unavailable Echo Combs MD Unavailable Syke Andujar NP Unavailable Active Problems Problem Noted [...] Dose Automatic Entry Manual Entr y DLP 3,150 mGycm 3,150 mGycm 0 mGycm
== END 2024-11-29 14:17 | disposition home or self-care (01) ==
LOC: ANHCARD 14:21
PROVIDERS: PCP Family Medicine; Visit Provider Internal Medicine Cardiovascular Disease
DX: R93.1 Abnormal findings on diagnostic imaging of heart and coronary circulation (principal); I34.0 Nonrheumatic mitral (valve) insufficiency
CPT/HCPCS: 93306